=== PATIENT | female | born 1940 | race Two or more races ===

== ENCOUNTER 2017-05-07 12:26 | Inpatient (IN) | payer MEDICAID, MEDICARE ==
[2017-05-07] MEDS ORDERED: Bisacodyl 5 MG Tab PO PRN (16:49)
[2017-05-07] MEDS ORDERED: Bisacodyl 10 MG Supp RECTAL PRN (16:49)
[2017-05-07] MEDS: Albuterol 0.083% 2.5 MG/3 ML Neb Soln NEB SCH (20:10)
[2017-05-07] MEDS: Formoterol/Mometasone 200-5 MCG 8.8 GM Inhaler IH SCH (20:15)
--- NOTE | 2017-05-07 20:30 | PCM.HP ---
H&P History of Present Illness - General Date of Service: 05/07/17 Admit Problem/Dx: Admission Diagnosis/Problem Admission Diagnosis/Problem Weakness Source of Information: Patient, Family History Limitations: Reports: No Limitations - History of Present Illness Initial Comments - Free Text/Narative: Mrs. Louie is a 76 yo female with PMH of COPD, CHF, CML, hypothyroidism, and DM who is admitted to [facility] for swing bed rehabilitation following an acute hospitalization at [facility] for a presumed GI bleed. She had presented to the ED for evaluation due to general malaise and abdominal pain. While in the ED, she ended up having a coffee ground emesis that was positive for occult blood. During her hospital stay, an EGD was performed and did not reveal a specific cause of bleeding. Her hemoglobins were trended and overall remained stable; she never required a blood transfusion but was given 2 doses of IV iron. PT and OT did assess the patient and felt she would benefit from rehabilitation prior to returning home with her son and his family. Upon arrival to the floor, she denies any concerns. She states she feels weak but that even at home, some days are better than others. She has not had any vomiting nor diarrhea over the past day. She denies any abdominal pain, fever, or chills. She has not had any lightheadedness, chest pain, or shortness of breath. Her family wonders whether her antidepressant should be restarted. This was tapered and discontinued by her PCP but they have noticed that her mood seems to be worsening since that was done. It looks like she was on paxil previously. - Related Data Allergies/Adverse Reactions: Allergies Allergy/AdvReac Type Severity Reaction Status Date / Time hydromorphone Allergy Other Verified 05/07/17 12:32 Home Medications: Home Meds Albuterol [IJD: Ventolin HFA] 2 puff INH QID PRN 05/07/17 [History] Albuterol [Proventil Neb Soln] 2.5 mg NEB QIDRT 05/07/17 [History] Cranberry 500 mg PO DAILY 05/07/17 [History] Fluticasone/Salmeterol [Advair 250-50 Diskus] 1 puff INH BID 05/07/17 [History] Levothyroxine 112 mcg PO ACBREAKFAST 05/07/17 [History] Lidocaine 5% [Lidoderm 5%] 1 patch TOP DAILY 05/07/17 [History] Multivitamin [Daily Iris] 1 each PO DAILY 05/07/17 [History] Omeprazole 20 mg PO BIDAC 05/07/17 [History] glipiZIDE [Glucotrol] 10 mg PO DAILY 05/07/17 [History] traMADol [Ultram] 50 mg PO TID PRN 05/07/17 [History] Past Medical History HEENT History: Reports: Other (See Below) Other HEENT History: eye surgery Cardiovascular History: Reports: Heart Failure Respiratory History: Reports: COPD Gastrointestinal History: Reports: GI Bleed Genitourinary History: Reports: Chronic Renal Insuffiency Musculoskeletal History: Reports: None Neurological History: Reports: None Psychiatric History: Reports: Depression Endocrine/Metabolic History: Reports: Diabetes, Type II, Hypothyroidism Hematologic History: Reports: Anemia, Iron Deficiency Oncologic (Cancer) History: Reports: Other (See Below) Other Oncologic History: chronic CML Dermatologic History: Reports: None - Infectious Disease History Infectious Disease History: Reports: None - Past Surgical History HEENT Surgical History: Reports: Eye Surgery GI Surgical History: Reports: EGD Female Surgical History: Reports: Hysterectomy Social & Family History - Family History GI: Reports: Cirrhosis : Reports: Renal Disease/Insufficiency Endocrine/Metabolic: Reports: Diabetes, type II - Tobacco Use Smoking Status *Q: Former Smoker Used Tobacco, but Quit: Yes Month Tobacco Last Used: 2014 - Caffeine Use Caffeine Use: Reports: Coffee - Alcohol Use Alcohol Use History: No Alcohol Use in Last Twelve Months: No - Recreational Drug Use Recreational Drug Use: No - Living Situation & Occupation Living situation: Reports: , with Family (with her son and his family in [place] - moved here 3 months ago after living with various other children in [place] prior to that) H&P Review of Systems - Review of Systems: Review Of Systems: See Below General: Reports: No Symptoms HEENT: Reports: No Symptoms Pulmonary: Reports: No Symptoms Cardiovascular: Reports: No Symptoms Gastrointestinal: Reports: No Symptoms Genitourinary: Reports: No Symptoms Musculoskeletal: Reports: No Symptoms Skin: Reports: No Symptoms Psychiatric: Reports: No Symptoms Neurological: Reports: No Symptoms Hematologic/Lymphatic: Reports: Anemia Exam - Exam Exam: See Below - Vital Signs Vital Signs: Last Vital Signs Temp 36.9 C 05/07/17 16:49 Pulse 90 05/07/17 16:49 Resp 18 05/07/17 16:49 BP 141/55 H 05/07/17 14:59 Pulse Ox 100 05/07/17 16:49 Weight: 44.906 kg - Exam General: Alert, Cooperative. No: Mild Distress, Moderate Distress, Severe Distress HEENT: Conjunctiva Clear, Mucosa Moist & [place], Posterior Pharynx Clear, Pupils Equal, Pupils Reactive Neck: Supple, Trachea Midline. No: Lymphadenopathy, Thyromegaly Lungs: Clear to Auscultation, Normal Respiratory Effort Cardiovascular: Regular Rate, Regular Rhythm, Normal S1, Normal S2. No: Systolic Murmur, Diastolic Murmur Abdomen: Normal Bowel Sounds, Soft. No: Organomegaly, Peritoneal Signs, Distention, Tenderness Extremities: Normal Inspection, Normal Pulses Skin: Warm, Dry, Intact Neurological: Normal Speech. No: Focal Deficit *Q Meaningful Use (ADM) - VTE *Q VTE Criteria *Q: VTE Pharmacological Contraindications *Q: Risk of Bleeding - Stroke *Q Stroke Criteria *Q: - AMI *Q AMI Criteria *Q: - Problem List (1) Generalized weakness SNOMED Code(s): 23739069 ICD Code: R53.1 - WEAKNESS Status: Acute Current Visit: Yes Problem Details: - Secondary to hospitalization and GI bleed. - PT/OT consults. (2) GI bleed SNOMED Code(s): 79037620 ICD Code: K92.2 - GASTROINTESTINAL HEMORRHAGE, UNSPECIFIED Status: Resolved Current Visit: Yes Problem Details: - Presumably upper GI bleed given h/o coffee ground emesis. - EGD without specific etiology identified. - Hgb stable. Can likely be rechecked in 1 week. - Mention of colonoscopy in d/c summary; however, this can likely be deferred until the patien saul recovered from her acute hospitalization. - Continue PPI. Qualifiers: GI bleed type/associated pathology: unspecified gastrointestinal hemorrhage type Qualified Code(s): K92.2 - Gastrointestinal hemorrhage, unspecified (3) CHF (congestive heart failure) SNOMED Code(s): 50037190 ICD Code: I50.9 - HEART FAILURE, UNSPECIFIED Status: Chronic Current Visit: Yes Problem Details: - Currently asymptomatic and stable. - Not on medications for this. Qualifiers: Congestive heart failure type: diastolic Congestive heart failure chronicity: chronic Qualified Code(s): I50.32 - Chronic diastolic (congestive ) heart failure (4) COPD (chronic obstructive pulmonary disease) SNOMED Code(s): 42073614 ICD Code: J44.9 - CHRONIC OBSTRUCTIVE PULMONARY DISEASE, UNSPECIFIED Status : Chronic Current Visit: Yes Problem Details: - Also asymptomatic and stable. - Continue scheduled albuterol nebs and Advair. Qualifiers: COPD type: unspecified COPD Qualified Code(s): J44.9 - Chronic obstructive pulmonary disease, unspecified (5) Diabetes mellitus SNOMED Code(s): 83383210 ICD Code: E11.9 - TYPE 2 DIABETES MELLITUS WITHOUT COMPLICATIONS Status: Chronic Current Visit: Yes Problem Details: - Usually controlled on orals but was on insulin during her hospital stay. - Hold insulin at this point and continue glipizide. - QID glucoses. Will start insulin PRN. Qualifiers: Diabetes mellitus type: type 2 Diabetes mellitus complication status: without complication (6) Hypothyroidism SNOMED Code(s): 04747107 ICD Code: E03.9 - HYPOTHYROIDISM, UNSPECIFIED Status: Chronic Current Visit: Yes Problem Details: - Continue levothyroxine. Qualifiers: Hypothyroidism type: acquired Qualified Code(s): E03.9 - Hypothyroidism, unspecified (7) Chronic low back pain SNOMED Code(s): 226204336 ICD Code: M54.5 - LOW BACK PAIN; G89.29 - OTHER CHRONIC PAIN Status: Chronic Current Visit: Yes Problem Details: - Continue lidoderm and tramadol. Qualifiers: Back pain laterality: unspecified Sciatica presence: unspecified whether sciatica present Qualified Code(s): M54.5 - Low back pain; G89.29 - Other chronic pain Problem List Initiated/Reviewed/Updated: Yes Orders Last 24hrs: Active Orders 24 hr Category Date Time Status Patient Status [ADT] Routine ADT 05/07/17 16:49 Active Antiembolic Devices [RC] , Care 05/07/17 16:52 Active Notify Provider Vital Signs [RC] ,18 Care 05/07/17 16:50 Active Oxygen Therapy [RC] ,20 Care 05/07/17 16:49 Active Up With Assistance [RC] , Care 05/07/17 16:49 Active VTE/DVT Education [RC] .PRN Care 05/07/17 16:49 Active Vital Signs [RC] PER UNIT ROUTINE Care 05/07/17 16:49 Active OT Evaluation and Treatment [CONS] Routine Cons 05/07/17 16:49 Active PT Evaluation and Treatment [CONS] Routine Cons 05/07/17 16:49 Active Citizen Of [place] Diabetic Association Diet [DIET] Diet 05/07/17 Dinner Active Acetaminophen [Tylenol] Med 05/07/17 16:49 Active 650 mg PO Q4H PRN Albuterol [Proventil Neb Soln] Med 05/07/17 20:00 Active 2.5 mg NEB QIDRT Bisacodyl [Dulcolax] Med 05/07/17 16:49 Active 10 mg RECTAL DAILY PRN Bisacodyl [Dulcolax] Med 05/07/17 16:49 Active 5 mg PO DAILY PRN Cranberry Med 05/08/17 08:00 Active 500 mg PO DAILY Docusate Sodium [Colace] Med 05/07/17 16:49 Active 100 mg PO BID PRN Levothyroxine Med 05/08/17 07:00 Active 112 mcg PO ACBREAKFAST Lidocaine 5% [Lidoderm 5%] Med 05/08/17 08:00 Active 700 mg TOP DAILY Mometasone/Formoterol [Dulera 200-5 MCG] Med 05/07/17 20:00 Active 2 puff IH BID Multivitamins with Zinc [Stress Formula with Zinc] Med 05/08/17 08:00 Active 1 tab PO DAILY Omeprazole Med 05/08/17 07:00 Active 20 mg PO BIDAC Remove Patch Med 05/07/17 20:00 Active 1 ea TRDERM DAILY@1999 glipiZIDE [Glucotrol] Med 05/08/17 08:00 Active 10 mg PO DAILY traMADol [Ultram] Med 05/07/17 17:12 Active 50 mg PO TID PRN Sequential Compression Device [OM.PC] Routine Oth 05/07/17 16:49 Ordered VTE Pharmacological Contraindications [AST] Per Unit Oth 05/07/17 16:49 Ordered Routine Resuscitation Status Routine Resus Stat 05/07/17 16:49 Ordered Medication Orders Acetaminophen (Tylenol) 650 mg PO Q4H PRN PRN Reason: Pain (Mild 1-3)/fever Albuterol (Proventil Neb Soln) 2.5 mg NEB QIDRT [facility] Last Admin: 05/07/17 20:10 Dose: 2.5 mg Bisacodyl (Dulcolax) 5 mg PO DAILY PRN PRN Reason: Constipation Bisacodyl (Dulcolax) 10 mg RECTAL DAILY PRN PRN Reason: Constipation Cranberry (Cranberry) 500 mg PO DAILY [facility] Docusate Sodium (Colace) 100 mg PO BID PRN PRN Reason: Constipation Glipizide (Glucotrol) 10 mg PO DAILY [facility] Levothyroxine Sodium (Levothyroxine) 112 mcg PO ACBREAKFAST [facility] Lidocaine (Lidoderm 5%) 700 mg TOP DAILY [facility] Miscellaneous Information (Remove Patch) 1 ea TRDERM DAILY@1999 [facility] Mometasone Furoate/Formoterol Fumar (Dulera 200-5 Mcg) 2 puff IH BID [facility] Last Admin: 05/07/17 20:15 Dose: 2 puff Omeprazole (Omeprazole) 20 mg PO BIDAC [facility] Tramadol HCl (Ultram) 50 mg PO TID PRN PRN Reason: Pain Vitamin B Complex/Vit C/Vit E/Zinc (Stress Formula With Zinc) 1 tab PO DAILY [facility] Assessment/Plan Comment:: 76 yo female admitted to swing bed for rehabilitation following an acute hospitalization in [place] for a GI bleed. PT/OT consults. Medications as per hospital dismissal summary. See details under problems above. SCDs for VTE prophylaxis; pharmacologic contraindicated in the setting of a recent GI bleed. Patient wishes to be FULL CODE. Anticipate a few weeks of rehab but this will be guided by PT and OT.
[2017-05-07] MEDS: Melatonin 3 MG Tab PO SCH (22:18)
[2017-05-07] MEDS: Remove Patch **LIDOCAINE TRDERM SCH (22:18)
[2017-05-07] MEDS: traMADol 50 MG Tab PO PRN (22:21)
[2017-05-08] MEDS: Omeprazole 20 MG Cap.CR PO SCH ×2 (06:49→17:19)
[2017-05-08] MEDS: Levothyroxine 112 MCG Tab PO SCH (06:49)
[2017-05-08] MEDS: Albuterol 0.083% 2.5 MG/3 ML Neb Soln NEB SCH ×4 (07:28→20:10)
[2017-05-08] MEDS: Cranberry 500 MG Cap PO SCH (08:52)
[2017-05-08] MEDS: Multivitamin, Stress Formula with Zinc Tab PO SCH (08:52)
[2017-05-08] MEDS: Lidocaine 5% 700 MG Patch TOP SCH (08:53)
[2017-05-08] MEDS: Formoterol/Mometasone 200-5 MCG 8.8 GM Inhaler IH SCH ×2 (08:54→20:11)
[2017-05-08] MEDS: Insulin Aspart 100 Units/ML 3 ML Pen SUBCUT SCH ×2 (11:47→17:45)
[2017-05-08] MEDS: Remove Patch **LIDOCAINE TRDERM SCH (20:11)
[2017-05-08] MEDS: Melatonin 3 MG Tab PO SCH (20:11)
[2017-05-08] MEDS: traMADol 50 MG Tab PO PRN (20:55)
[2017-05-08] MEDS: Docusate Sodium 100 MG Cap PO PRN (20:55)
[2017-05-09] MEDS: Omeprazole 20 MG Cap.CR PO SCH ×2 (06:27→17:11)
[2017-05-09] MEDS: Levothyroxine 112 MCG Tab PO SCH (06:27)
[2017-05-09] MEDS: Albuterol 0.083% 2.5 MG/3 ML Neb Soln NEB SCH ×3 (07:15→20:42)
--- NOTE | 2017-05-09 08:20 | PCM.SN ---
- Free Text/Narrative Note: Nurses have noted dark, foul smelling urine. U/A is consistent with UTI. Will treat with bactrim as macrobid is not an option due to CrCl <60.
[2017-05-09] MEDS ORDERED: Sulfamethoxazole/Trimethoprim 800-160 MG Tab PO SCH (08:30)
[2017-05-09] MEDS: Multivitamin, Stress Formula with Zinc Tab PO SCH (09:06)
[2017-05-09] MEDS: Cranberry 500 MG Cap PO SCH (09:06)
[2017-05-09] MEDS: Lidocaine 5% 700 MG Patch TOP SCH (09:06)
[2017-05-09] MEDS: Formoterol/Mometasone 200-5 MCG 8.8 GM Inhaler IH SCH ×2 (09:07→20:48)
[2017-05-09] MEDS: Insulin Aspart 100 Units/ML 3 ML Pen SUBCUT SCH ×3 (09:09→17:13)
[2017-05-09] MEDS: Melatonin 3 MG Tab PO SCH (20:42)
[2017-05-09] MEDS: Nitrofurantoin Monohydrate/Macrocrystalline 100 MG Cap PO SCH (20:42)
[2017-05-09] MEDS: Remove Patch **LIDOCAINE TRDERM SCH (20:42)
[2017-05-10] MEDS: Levothyroxine 112 MCG Tab PO SCH (06:12)
[2017-05-10] MEDS: Omeprazole 20 MG Cap.CR PO SCH ×2 (06:12→17:38)
[2017-05-10] MEDS: Albuterol 0.083% 2.5 MG/3 ML Neb Soln NEB SCH ×2 (07:27→20:38)
[2017-05-10] MEDS: Cranberry 500 MG Cap PO SCH (09:32)
[2017-05-10] MEDS: Multivitamin, Stress Formula with Zinc Tab PO SCH (09:32)
[2017-05-10] MEDS: Nitrofurantoin Monohydrate/Macrocrystalline 100 MG Cap PO SCH ×2 (09:33→20:38)
[2017-05-10] MEDS: Formoterol/Mometasone 200-5 MCG 8.8 GM Inhaler IH SCH ×2 (09:33→20:41)
[2017-05-10] MEDS: Lidocaine 5% 700 MG Patch TOP SCH (09:33)
[2017-05-10] MEDS: Insulin Aspart 100 Units/ML 3 ML Pen SUBCUT SCH ×3 (09:34→17:38)
[2017-05-10] MEDS: traMADol 50 MG Tab PO PRN (13:11)
[2017-05-10] MEDS: Acetaminophen 325 MG Tab PO PRN (18:29)
[2017-05-10] MEDS: Melatonin 3 MG Tab PO SCH (20:38)
[2017-05-10] MEDS: Remove Patch **LIDOCAINE TRDERM SCH (20:42)
[2017-05-11] MEDS: Omeprazole 20 MG Cap.CR PO SCH ×2 (06:01→17:09)
[2017-05-11] MEDS: Levothyroxine 112 MCG Tab PO SCH (06:02)
[2017-05-11] MEDS: Albuterol 0.083% 2.5 MG/3 ML Neb Soln NEB SCH ×2 (06:03→21:36)
[2017-05-11] MEDS: Acetaminophen 325 MG Tab PO PRN (08:53)
[2017-05-11] MEDS: Multivitamin, Stress Formula with Zinc Tab PO SCH (08:55)
[2017-05-11] MEDS: Cranberry 500 MG Cap PO SCH (08:55)
[2017-05-11] MEDS: Insulin Aspart 100 Units/ML 3 ML Pen SUBCUT SCH ×3 (08:55→17:10)
[2017-05-11] MEDS: Nitrofurantoin Monohydrate/Macrocrystalline 100 MG Cap PO SCH ×2 (08:55→21:36)
[2017-05-11] MEDS: Formoterol/Mometasone 200-5 MCG 8.8 GM Inhaler IH SCH ×2 (08:56→21:37)
[2017-05-11] MEDS: Lidocaine 5% 700 MG Patch TOP SCH (08:56)
[2017-05-11] MEDS: traMADol 50 MG Tab PO PRN (17:09)
[2017-05-11] MEDS: Remove Patch **LIDOCAINE TRDERM SCH (21:36)
[2017-05-11] MEDS: Melatonin 3 MG Tab PO SCH (21:36)
[2017-05-12] MEDS: Levothyroxine 112 MCG Tab PO SCH (06:46)
[2017-05-12] MEDS: Albuterol 0.083% 2.5 MG/3 ML Neb Soln NEB SCH ×2 (06:46→21:48)
[2017-05-12] MEDS: Omeprazole 20 MG Cap.CR PO SCH ×2 (06:46→16:23)
[2017-05-12] MEDS: Formoterol/Mometasone 200-5 MCG 8.8 GM Inhaler IH SCH ×2 (08:28→21:49)
[2017-05-12] MEDS: Multivitamin, Stress Formula with Zinc Tab PO SCH (08:28)
[2017-05-12] MEDS: Insulin Aspart 100 Units/ML 3 ML Pen SUBCUT SCH ×3 (08:29→17:18)
[2017-05-12] MEDS: Lidocaine 5% 700 MG Patch TOP SCH (08:29)
[2017-05-12] MEDS: Nitrofurantoin Monohydrate/Macrocrystalline 100 MG Cap PO SCH ×2 (08:29→21:46)
[2017-05-12] MEDS: Acetaminophen 325 MG Tab PO PRN ×2 (08:29→16:23)
[2017-05-12] MEDS: Cranberry 500 MG Cap PO SCH (08:29)
--- NOTE | 2017-05-12 09:52 | PCM.SN ---
- Free Text/Narrative Note: Asked by nursing staff to look at her arm. At site of previous IV, she had some swelling and redness. This was outlined and does appear to be receding today. She still does have some pain. No fever or chills. When I look at the area, she does have some erythema and induration; no underlying fluctuance. However, it has receded significantly from the previously drawn line yesterday. Therefore, I would continue with ice/heat and observation. I will look at it again tomorrow. CBC today is stable/uptrending.
[2017-05-12] MEDS: traMADol 50 MG Tab PO PRN ×2 (14:15→21:46)
[2017-05-12] MEDS: Melatonin 3 MG Tab PO SCH (21:46)
[2017-05-12] MEDS: Remove Patch **LIDOCAINE TRDERM SCH (21:48)
[2017-05-13] MEDS: Acetaminophen 325 MG Tab PO PRN ×2 (06:52→16:25)
[2017-05-13] MEDS: Omeprazole 20 MG Cap.CR PO SCH ×2 (06:52→17:06)
[2017-05-13] MEDS: Levothyroxine 112 MCG Tab PO SCH (06:52)
[2017-05-13] MEDS: Albuterol 0.083% 2.5 MG/3 ML Neb Soln NEB SCH ×2 (07:22→20:24)
--- NOTE | 2017-05-13 08:26 | PCM.SN ---
- Free Text/Narrative Note: Checked on patient's arm today. Pain is not improved and redness is worse today. Will go ahead and start cephalexin for cellulitis. Patient is anticipating d/c home tomorrow.
[2017-05-13] MEDS: Cephalexin 500 MG Cap PO SCH ×2 (08:42→20:27)
[2017-05-13] MEDS: Cranberry 500 MG Cap PO SCH (08:42)
[2017-05-13] MEDS: Lidocaine 5% 700 MG Patch TOP SCH (08:42)
[2017-05-13] MEDS: Multivitamin, Stress Formula with Zinc Tab PO SCH (08:43)
[2017-05-13] MEDS: Formoterol/Mometasone 200-5 MCG 8.8 GM Inhaler IH SCH ×2 (08:44→20:29)
[2017-05-13] MEDS: Insulin Aspart 100 Units/ML 3 ML Pen SUBCUT SCH ×3 (08:45→17:07)
[2017-05-13] MEDS: Nitrofurantoin Monohydrate/Macrocrystalline 100 MG Cap PO SCH (10:54)
[2017-05-13] MEDS: traMADol 50 MG Tab PO PRN (20:25)
[2017-05-13] MEDS: Melatonin 3 MG Tab PO SCH (20:27)
[2017-05-13] MEDS: Remove Patch **LIDOCAINE TRDERM SCH (20:30)
[2017-05-13] MEDS: Docusate Sodium 100 MG Cap PO PRN (20:37)
[2017-05-14] MEDS: Levothyroxine 112 MCG Tab PO SCH (06:00)
[2017-05-14] MEDS: Omeprazole 20 MG Cap.CR PO SCH (06:01)
[2017-05-14 06:25] VITALS: BP 166/60
[2017-05-14] MEDS: Albuterol 0.083% 2.5 MG/3 ML Neb Soln NEB SCH (07:24)
[2017-05-14] MEDS: Cephalexin 500 MG Cap PO SCH (07:59)
[2017-05-14] MEDS: Multivitamin, Stress Formula with Zinc Tab PO SCH (07:59)
[2017-05-14] MEDS: Formoterol/Mometasone 200-5 MCG 8.8 GM Inhaler IH SCH (07:59)
[2017-05-14] MEDS: Cranberry 500 MG Cap PO SCH (08:00)
[2017-05-14] MEDS: Insulin Aspart 100 Units/ML 3 ML Pen SUBCUT SCH (08:00)
[2017-05-14] MEDS: Lidocaine 5% 700 MG Patch TOP SCH (08:01)
--- NOTE | 2017-05-14 08:26 | PCM.DCSUM1 ---
Discharge Summary - Discharge Data Discharge Date: 05/14/17 Discharge Disposition: Home, Self-Care 01 Condition: Good - Discharge Diagnosis/Problem(s) (1) Generalized weakness SNOMED Code(s): 90684680 ICD Code: R53.1 - WEAKNESS Status: Acute Current Visit: Yes Problem Details: Her weakness is secondary to hospitalization and GI bleed. PT and OT have been consulted and she has improved somewhat. She is felt to need 24 hour supervision but this will be provided by family. (2) GI bleed SNOMED Code(s): 51109755 ICD Code: K92.2 - GASTROINTESTINAL HEMORRHAGE, UNSPECIFIED Status: Resolved Current Visit: Yes Problem Details: Presumably upper GI bleed given history of coffee ground emesis. EGD without specific etiology identified. Hemoglobin checked while on swing bed and was trending upward. Her PPI was continued. Qualifiers: GI bleed type/associated pathology: unspecified gastrointestinal hemorrhage type Qualified Code(s): K92.2 - Gastrointestinal hemorrhage, unspecified (3) CHF (congestive heart failure) SNOMED Code(s): 31760979 ICD Code: I50.9 - HEART FAILURE, UNSPECIFIED Status: Chronic Current Visit: Yes Problem Details: Currently asymptomatic and stable. Not on medications for this. Qualifiers: Congestive heart failure type: diastolic Congestive heart failure chronicity: chronic Qualified Code(s): I50.32 - Chronic diastolic (congestive ) heart failure (4) COPD (chronic obstructive pulmonary disease) SNOMED Code(s): 15522787 ICD Code: J44.9 - CHRONIC OBSTRUCTIVE PULMONARY DISEASE, UNSPECIFIED Status : Chronic Current Visit: Yes Problem Details: Also asymptomatic and stable. Continue scheduled albuterol nebs and Advair. Qualifiers: COPD type: unspecified COPD Qualified Code(s): J44.9 - Chronic obstructive pulmonary disease, unspecified (5) Diabetes mellitus SNOMED Code(s): 96878980 ICD Code: E11.9 - TYPE 2 DIABETES MELLITUS WITHOUT COMPLICATIONS Status: Chronic Current Visit: Yes Problem Details: Usually controlled on orals but was on insulin during her hospital stay. Was on sliding scale insulin here as well for elevated glucoses; however, will not dismiss home on this. They can watch her sugars upon dismissal and will work with her primary to make adjustments as indicated. Glipizide continued. Qualifiers: Diabetes mellitus type: type 2 Diabetes mellitus complication status: without complication (6) Hypothyroidism SNOMED Code(s): 62877955 ICD Code: E03.9 - HYPOTHYROIDISM, UNSPECIFIED Status: Chronic Current Visit: Yes Problem Details: Levothyroxine continued. Qualifiers: Hypothyroidism type: acquired Qualified Code(s): E03.9 - Hypothyroidism, unspecified (7) Chronic low back pain SNOMED Code(s): 743812884 ICD Code: M54.5 - LOW BACK PAIN; G89.29 - OTHER CHRONIC PAIN Status: Chronic Current Visit: Yes Problem Details: Lidoderm and tramadol continued. Qualifiers: Back pain laterality: unspecified Sciatica presence: unspecified whether sciatica present Qualified Code(s): M54.5 - Low back pain; G89.29 - Other chronic pain (8) Cellulitis SNOMED Code(s): 791959131 ICD Code: L03.90 - CELLULITIS, UNSPECIFIED Status: Acute Current Visit: Yes Problem Details: Patient was noted to have redness and swelling at one of her IV sites. She was started on cephalexin with some improvement in symptoms. Qualifiers: Site of cellulitis: extremity Site of cellulitis of extremity: upper extremity Laterality: left Qualified Code(s): L03.114 - Cellulitis of left upper limb (9) Cystitis SNOMED Code(s): 84361197 ICD Code: N30.90 - CYSTITIS, UNSPECIFIED WITHOUT HEMATURIA Status: Acute Current Visit: Yes Problem Details: Nursing staff had noted dark, foul smelling urine. The patient was asymptomatic. A u/a was concerning for a UTI and she was treated with a 5 day course of macrobid. Her symptoms resolved. - Patient Summary/Data Operative Procedure(s) Performed: none Complications: none Consults: Consultations 05/07/17 16:49 OT Evaluation and Treatment [CONS] Routine PT Evaluation and Treatment [CONS] Routine Labs Pending at D/C: none Recommended Follow-up Testing/Procedures: Hospital discharge summary recommends consideration for a colonoscopy. Planned Operative Procedure(s) after DC: none Hospital Course: Therapy worked with the patient for strengthening and it was felt she was prepared for dismissal home with family as of 05/14/17. - Patient Instructions Diet: Diabetic Diet Driving: Do Not Drive Showering/Bathing: May Shower Notify Provider of: Fever, Increased Pain, Swelling and Redness - Discharge Plan Prescriptions/Med Rec: Cephalexin [IJD: Cephalexin] 500 mg PO BID #12 capsule Home Medications: Home Meds Albuterol [IJD: Ventolin HFA] 2 puff INH QID PRN 05/07/17 [History] Cranberry 500 mg PO DAILY 05/07/17 [History] Fluticasone/Salmeterol [Advair 250-50 Diskus] 1 puff INH BID 05/07/17 [History] Levothyroxine 112 mcg PO ACBREAKFAST 05/07/17 [History] Lidocaine 5% [Lidoderm 5%] 1 patch TOP DAILY 05/07/17 [History] Multivitamin [Daily Iris] 1 each PO DAILY 05/07/17 [History] Omeprazole 20 mg PO BIDAC 05/07/17 [History] glipiZIDE [Glucotrol] 10 mg PO DAILY 05/07/17 [History] traMADol [Ultram] 50 mg PO TID PRN 05/07/17 [History] Cephalexin [IJD: Cephalexin] 500 mg PO BID #12 capsule 05/14/17 [Rx] - Discharge Summary/Plan Comment DC Time >30 min.: No - General Info Date of Service: 05/14/17 Subjective Update: Doing well this morning. Prepared for dismissal. - Review of Systems General: Reports: No Symptoms HEENT: Reports: no symptoms Pulmonary: Reports: no symptoms Cardiovascular: Reports: No Symptoms Gastrointestinal: Reports: No symptoms Genitourinary: Reports: no symptoms Musculoskeletal: Reports: no symptoms Skin: Reports: no symptoms Neurological: Reports: No Symptoms - Patient Data Vitals - Most Recent: Last Vital Signs Temp 36.8 C 05/14/17 06:00 Pulse 86 05/14/17 06:00 Resp 20 05/14/17 06:00 BP 166/60 H 05/14/17 06:00 Pulse Ox 95 05/14/17 07:27 Weight - Most Recent: 44.906 kg I&O - Last 24 hours: Intake & Output 05/13/17 05/14/17 05/14/17 22:59 06:59 14:59 Intake Total 240 Balance 240 Lab Results - Last 24 hrs: Laboratory Results - last 24 hr 05/13/17 05/13/17 05/13/17 Range/Units 06:51 10:59 17:06 POC Glucose 201 H 268 H 364 H (74-106) mg/dL 05/13/17 05/14/17 Range/Units 20:24 06:05 POC Glucose 160 H 201 H (74-106) mg/dL Med Orders - Current: Current Medications Acetaminophen (Tylenol) 650 mg PO Q4H PRN PRN Reason: Pain (Mild 1-3)/fever Last Admin: 05/13/17 16:25 Dose: 650 mg Albuterol (Proventil Neb Soln) 2.5 mg NEB BIDRT [facility] Last Admin: 05/14/17 07:24 Dose: 2.5 mg Bisacodyl (Dulcolax) 5 mg PO DAILY PRN PRN Reason: Constipation Bisacodyl (Dulcolax) 10 mg RECTAL DAILY PRN PRN Reason: Constipation Cephalexin (Keflex) 500 mg PO BID [facility] Stop: 05/19/17 20:01 Last Admin: 05/14/17 07:59 Dose: 500 mg Cranberry (Cranberry) 500 mg PO DAILY [facility] Last Admin: 05/14/17 08:00 Dose: 500 mg Docusate Sodium (Colace) 100 mg PO BID PRN PRN Reason: Constipation Last Admin: 05/13/17 20:37 Dose: 100 mg Glipizide (Glucotrol) 10 mg PO DAILY [facility] Last Admin: 05/14/17 07:59 Dose: 10 mg Insulin Aspart (Novolog) 0 unit SUBCUT TIDMEALS [facility] PRN Reason: Protocol Last Admin: 05/14/17 08:00 Dose: 2 units Levothyroxine Sodium (Levothyroxine) 112 mcg PO ACBREAKFAST [facility] Last Admin: 05/14/17 06:00 Dose: 112 mcg Lidocaine (Lidoderm 5%) 700 mg TOP DAILY [facility] Last Admin: 05/14/17 08:01 Dose: 700 mg Melatonin (Melatonin) 3 mg PO BEDTIME [facility] Last Admin: 05/13/17 20:27 Dose: 3 mg Miscellaneous Information (Remove Patch) 1 ea TRDERM DAILY@1999 [facility] Last Admin: 05/13/17 20:30 Dose: 1 ea Mometasone Furoate/Formoterol Fumar (Dulera 200-5 Mcg) 2 puff IH BID [facility] Last Admin: 05/14/17 07:59 Dose: 2 puff Omeprazole (Omeprazole) 20 mg PO BIDAC [facility] Last Admin: 05/14/17 06:01 Dose: 20 mg Tramadol HCl (Ultram) 50 mg PO TID PRN PRN Reason: Pain Last Admin: 05/13/17 20:25 Dose: 50 mg Vitamin B Complex/Vit C/Vit E/Zinc (Stress Formula With Zinc) 1 tab PO DAILY [facility] Last Admin: 05/14/17 07:59 Dose: 1 tab Discontinued Medications Albuterol (Proventil Neb Soln) 2.5 mg NEB QIDRT [facility] Last Admin: 05/09/17 10:46 Dose: Not Given Nitrofurantoin Macrocrystals (Macrobid) 100 mg PO BID [facility] Stop: 05/13/17 20:01 Last Admin: 05/13/17 10:54 Dose: Not Given Trimethoprim/Sulfamethoxazole (Septra Ds) 1 tab PO BID [facility] Last Admin: 05/09/17 09:13 Dose: 1 tab - Exam General: Reports: alert, cooperative, no acute distress HEENT: Reports: Pupils equal, Pupils reactive, Mucous membr. moist/pink Neck: Reports: supple, no thyromegaly. Denies: lymphadenopathy Lungs: Reports: Clear to auscultation, Normal respiratory effort Cardiovascular: Reports: Regular Rate, Regular Rhythm, No Murmurs Abdomen: Reports: bowel sounds present, soft, no tenderness, no distension Extremities: Reports: no edema, normal pulses, other (area of cellulitis is less intensely red and is less painful and swollen today) Skin: Reports: warm, dry, intact *Q Meaningful Use (DIS) - VTE *Q VTE Criteria *Q: VTE Pharmacological Contraindications *Q: Risk of Bleeding - Stroke *Q Stroke Criteria *Q: - AMI *Q AMI Criteria *Q:
== END 2017-05-14 09:00 | disposition home or self-care (01) | DRG 948 ==
LOC: VM.MS 14:56
PROVIDERS: ADMIT Family Medicine; ATTEND Family Medicine
DX: R53.1 Weakness (principal); K92.2 Gastrointestinal hemorrhage, unspecified; I50.32 Chronic diastolic (congestive) heart failure; L03.114 Cellulitis of left upper limb; J44.9 Chronic obstructive pulmonary disease, unspecified; E11.9 Type 2 diabetes mellitus without complications; E03.9 Hypothyroidism, unspecified; M54.5 Low back pain; G89.29 Other chronic pain; N30.90 Cystitis, unspecified without hematuria; D50.0 Iron deficiency anemia secondary to blood loss (chronic); N18.9 Chronic kidney disease, unspecified; Z87.891 Personal history of nicotine dependence
CPT/HCPCS: 36415; 81001; 82962; 85025; 94640; 94640-76; 94760; 97110-GO; 97110-GP; 97116-GP; 97161-GP; 97165-GO; 97530-GP; A9270-GY; J1815-GY; J7620-GY

== ENCOUNTER 2017-07-18 12:23 | Inpatient (IN) | payer MEDICARE, MEDICAID ==
[2017-07-18] MEDS ORDERED: Ampicillin/Sulbactam Na 3 GM in Sodium Chloride 0.9% 100 ML IV ONE (13:21)
[2017-07-18 13:37] LABS: CHLORIDE,CL 99 mmol/L (98-107); SODIUM,NA 133 mmol/L (136-145)
[2017-07-18] MEDS ORDERED: Acetaminophen 500 MG Tab PO PRN (16:12)
--- NOTE | 2017-07-18 16:14 | ER ---
Date of Service: 07/18/2017 SUBJECTIVE: Aliyah presents to the emergency room with complaints of dysuria. Her nysvsamw-ty-ipb states that she was diagnosed with urinary tract infection approximately 2 weeks ago and was started on Cipro. Apparently, her urine susceptibility came back for E coli which was resistant to Cipro. The patient was subsequently seen in the clinic yesterday and was started on Augmentin. She has only had 1 tablet of this so far. The patient's tobqjqzp-qm-eks states that she lives with her and is her primary caregiver. The patient lives with her and her . She states that the patient has been experiencing increased weakness, difficulties with standing and transferring, and getting off the platelets. She states that she is also a noticed that the patient has been experiencing elevated blood sugars. She is currently on glipizide and apparently has been resistant to starting insulin. The patient's daughter left this out of her history but on obtaining her medical records she does have a history of CML and is being followed by [facility] for this. The patient's hvkcwkma-sd-tsl states that the patient's appetite has been adequate and she has been drinking a normal amounts of water. She states that her blood sugar has been in the 350 to 400 range over the past 24 hours. PAST MEDICAL HISTORY: 1. COPD. 2. CHF. 3. CML. 4. Hypothyroidism. 5. Type 2 diabetes mellitus. 6. Recent treatment for GI bleed. 7. Hypothyroidism. MEDICATIONS: 1. Albuterol nebulizer and inhaler. 2. Cranberry. 3. Advair Diskus. 4. Levothyroxine. 5. Lidoderm patch. 6. Multivitamin. 7. Omeprazole. 8. Glipizide. 9. Ultram. ALLERGIES: Hydromorphone. REVIEW OF SYSTEMS: General: Positive for fever or chills. HEENT: No sore throat, rhinorrhea, congestion. Respiratory: No shortness of breath. Cardiac: Denies any substernal chest pain. No jaw, arm, neck, or back pain. GI: No nausea, vomiting, or diarrhea. No melena, hematochezia, or hematemesis. : Please see history of present illness. She does complain of some dysuria. She denies any diarrhea. She denies any melena, hematochezia, or hematemesis. Musculoskeletal: No myalgias or arthralgias. Neurologic: No fainting, blackouts, or lightheadedness. PHYSICAL EXAMINATION: General: This is a 77-year-old female patient, who is in no acute distress. Vital Signs: Blood pressure is 148/71, heart rate 86, temperature is 36.7, or respiratory rate 16, O2 saturations 97%. Skin: Warm, pale, and dry. HEENT. Head is normocephalic, atraumatic. Mouth, oral mucosa is moist. Lungs: Clear to auscultation. Heart: Regular rate and rhythm. Abdomen: Soft, nontender. There is no hepatosplenomegaly noted. There are no masses noted. Extremities: Without edema. Neurologic: The patient is alert oriented, answers all questions appropriately. Her speech is fluent. Unable to assess her gait as she is currently in a wheelchair at this time. LABORATORY DATA: WBC is 17.2 with 71% neutrophils, 80% lymphocytes, 6% monos, and 1% eosinophils and 4% basophils. She did have occasional smudge cells, and 1+ anisocytosis and microcytosis, hemoglobin is 11.2, and platelets are 115. Coags: PT is 10.5, INR is 1.0. Chemistry: Sodium is 133, potassium is 4.2, chloride is 99, bicarb is 22, BUN is 39, and creatinine is 2.0. GFR is 24, glucose is 484, lactic acid is 2.1 calcium is 7.7, corrected calcium is 8.26, and total bilirubin is 0.5. AST is 37, ALT is 39, alkaline phosphatase is 203, C-reactive protein is 0.8, total protein is 8.3, and albumin is 3.3. IMAGING: Two-view chest x-ray was obtained. There was no evidence of any acute pathology. Urinalysis was deferred as she has had a recent urinary tract infection and currently is diagnosed with acute cystitis. EMERGENCY ROOM COURSE: IV access was established. She was given Unasyn 3 g IV and a 500 mL saline fluid bolus. She remained stable in my care in the emergency room. ASSESSMENT: Sepsis secondary to urinary tract infection. PLAN: The patient will be admitted acutely. I did speak with Dr. Lopez regarding this patient. She will likely require more than the 48 hour hospital stay. MWK: 07/18/2017 15:09:10 MODL: 07/18/2017 16:01:03 /[id number]
[2017-07-18] MEDS: Sodium Chloride 0.9% 1,000 ML IV SCH (16:46)
[2017-07-18] MEDS ORDERED: Albuterol 8 GM Inhaler INH PRN (16:58)
[2017-07-18] MEDS: Insulin Aspart 100 Units/ML 3 ML Pen SUBCUT SCH ×2 (18:21→19:51)
[2017-07-18] MEDS: Ergocalciferol (Vitamin D2) 50,000 Unit Cap PO SCH (18:21)
[2017-07-18] MEDS: Omeprazole 20 MG Cap.CR PO SCH (18:21)
[2017-07-18] MEDS: Formoterol/Mometasone 200-5 MCG 8.8 GM Inhaler IH SCH (19:52)
[2017-07-18] MEDS: Acetaminophen 500 MG Tab PO PRN (20:00)
--- NOTE | 2017-07-18 21:22 | HP ---
CHIEF COMPLAINT: Weakness, confusion. HISTORY OF PRESENT ILLNESS: The patient is a 77-year-old female, who has been recently treated as an outpatient for bladder infection. She had been on Cipro and then apparently, the culture was resistant to Cipro, so she was placed on Augmentin which she took for a day, then did not tolerate taking it. She has not been drinking as much. She became weaker and more confused, so daughter brought her to the emergency room. She has seen Dr. Judy Cast in the past on swing bed, had a doctor in [place], but will be switching to Dr. Judy Cast in the future. The patient is diabetic. She does have some bone marrow issues for which she has also been seen by Hematology and some chronic kidney disease. Blood sugars do tend to run around 200. The patient does have some chronic back pain, which daughter has been trying to wean off her medications. MEDICATIONS: She is currently on: 1. Augmentin 500 mg 1 twice a day. 2. Levothyroxine 112 mcg 1 pill Saturday, Saturday, , Saturday, and Saturday; 125 mcg on Sundays and Wednesdays. 3. Tylenol 500 mg 1 pill every 4-6 hours as needed. 4. Albuterol MDI 2 puffs every 4 hours as needed. 5. Vitamin D 50,000 units 1 pill once a week. 6. Omeprazole 20 mg 1 pill twice a day. 7. Multivitamin 1 pill a day. 8. Cranberry pill 1 pill daily. 9. Albuterol nebs q.4 q.i.d. p.r.n. 10.Advair 250/50 one puff twice a day. 11.Glipizide XL 5 mg, she takes 2 pills once a day. 12.Lidoderm patch, apply daily as needed. 13.Oxygen 1 L at night. ALLERGIES: Dilaudid. PAST MEDICAL HISTORY: She has CMML possibly, diagnosis is in question right now; COPD; chronic kidney disease, stage 3 to 4; type 2 diabetes mellitus; hypothyroidism; chronic back pain; vitamin D deficiency. She has had a GI bleed, iron deficiency anemia, right leg pain, cataracts. PAST SURGICAL HISTORY: Hysterectomy, eye surgery, upper endoscopy in 2017. FAMILY MEDICAL HISTORY: Not available. SOCIAL HISTORY: She is living with her daughter in [place]. Previously to that, she lived in [place] with a different daughter. 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 She is . She used to smoke. She does not consume alcohol. REVIEW OF SYSTEMS: Very weak, is forgetful. No fevere. Weight has been the same. She does have a cough. She does get winded with exertion. No nausea. Does have some problems with constipation or incontinence. Slender extremities. No chest pain. No bruising. She does have chronic back and joint pain. Mood is good No enlarged lymph glands. PHYSICAL EXAMINATION: General: Reveals a very slender, weak-appearing female. Vital Signs: Temperature is 96.3, pulse is 86, blood pressure is 148/71, sats are 97%, temperature is 36.7. Skin: [place], warm, and dry. Mucous membranes are dry. HEENT: Mucus membranes dry, [place], eyelids normal. Heart: Regular rate and rhythm. Lungs: Reveal some diminished breath sounds on bases. No crackles. Abdomen: Slightly distended.BS +, softe. Extremities: Slender, thin. arthritic deformities of hands. Skin No lesions Mood: quite, Neuro: Weak with walking, moves all extremities. LABORATORY DATA: Her white blood cell count is 17.2, hemoglobin 11.2, platelets 115, 71 segs, lymphs 18. Sodium 133, potassium 4.2, creatinine 2.0, BUN 39, glucose 484, lactic acid 2.1. IMPRESSION: 1. Urinary tract infection. 2. Septic, slightly elevated lactic acid. 3. Dehydration. 4. Chronic kidney disease, slight exacerbation. 5. Type 2 diabetes mellitus. 6. .Hyperglycemia due to illness. 7. Chronic back pain. 8.Forgetfulness. PLAN: The patient will be admitted to the acute care. She is code level 1 status. We will do IV hydration. She will receive Unasyn for an antibiotic, as she has failed out patient care. We will see PT, OT, and Bank Vault Clerk to assist with the patient. She requests Dr Cast to manage her care. Anticipate discharge home in a few days.. GM07/18/2017 15:10:19 MODL: 07/18/2017 21:07:37 /[id number] [facility]
[2017-07-19] MEDS: Ampicillin/Sulbactam Na 3 GM in Sodium Chloride 0.9% 100 ML IV SCH ×2 (01:23→14:12)
[2017-07-19] MEDS: Sodium Chloride 0.9% 1,000 ML IV SCH (03:14)
[2017-07-19] MEDS: Levothyroxine 112 MCG Tab PO SCH (06:01)
[2017-07-19] MEDS: Omeprazole 20 MG Cap.CR PO SCH ×2 (06:02→15:59)
[2017-07-19] MEDS: Formoterol/Mometasone 200-5 MCG 8.8 GM Inhaler IH SCH ×2 (06:04→19:36)
[2017-07-19] MEDS: Multivitamins with Iron/Calcium/Folic Acid/Minerals Tab PO SCH (07:51)
[2017-07-19] MEDS: Cranberry 500 MG Cap PO SCH (07:51)
[2017-07-19] MEDS: Ergocalciferol (Vitamin D2) 50,000 Unit Cap PO SCH (07:51)
[2017-07-19] MEDS: Acetaminophen 500 MG Tab PO PRN ×2 (07:52→22:36)
[2017-07-19] MEDS: Insulin Aspart 100 Units/ML 3 ML Pen SUBCUT SCH ×4 (07:54→19:37)
[2017-07-19] MEDS ORDERED: Lidocaine 5% 700 MG Patch TOP PRN (08:00)
--- NOTE | 2017-07-19 08:31 | ER ---
Date of Service: 07/18/2017 SUBJECTIVE: Aliyah presents to the emergency room with complaints of fatigue DICTATION ENDED ABRUPTLY. MWK: 07/18/2017 14:51:19 MODL: 07/18/2017 20:50:11 /[id number]
--- NOTE | 2017-07-19 08:36 | PCM.PN ---
- General Info Date of Service: 07/19/17 Subjective Update: Patient is upset this morning as she did not sleep well and is having significant diffuse pains. She usually takes tylenol for this and did get a dose shortly before I visited with her. She denies any fever, chills, dysuria, frequency, urgency, or abdominal pain. - Review of Systems General: Reports: No Symptoms HEENT: Reports: No Symptoms Pulmonary: Reports: No Symptoms Cardiovascular: Reports: No Symptoms Gastrointestinal: Reports: No Symptoms Genitourinary: Reports: No Symptoms Musculoskeletal: Reports: Hand Pain, Back Pain Skin: Reports: No Symptoms Neurological: Reports: No Symptoms - Patient Data Vitals - Most Recent: Last Vital Signs Temp 37.2 C 07/19/17 06:00 Pulse 94 07/19/17 06:00 Resp 24 H 07/19/17 06:00 BP 151/65 H 07/19/17 06:00 Pulse Ox 90 L 07/19/17 08:01 Weight - Most Recent: 49.941 kg I&O - Last 24 Hours: Intake & Output 07/18/17 07/19/17 07/19/17 22:59 06:59 14:59 Intake Total 420 869 Output Total 550 Balance -130 869 Lab Results Last 24 Hours: Laboratory Results - last 24 hr 07/18/17 07/18/17 07/19/17 Range/Units 18:16 19:51 06:00 WBC (4.0-10.0) x10^3/uL RBC (4.00-5.50) x10^6/uL Hgb (12.0-16.0) g/dL Hct (33.0-47.0) % MCV (78.0-93.0) fL MCH (26.0-32.0) pg MCHC (32.0-36.0) g/dL RDW Coeff of Bud (10.0-15.0) % Plt Count (130-400) x10^3/uL Add Manual Diff Neutrophils % (Manual) (50-80) % Band Neutrophils % (0-6) % Lymphocytes % (Manual) (25-50) % Atypical Lymphs % (0) % Platelet Estimate Hypochromasia Anisocytosis Sodium (136-145) mmol/L Potassium (3.5-5.1) mmol/L Chloride (98-107) mmol/L Carbon Dioxide (21-32) mmol/L BUN (7-18) mg/dL Creatinine (0.55-1.02) mg/dL Est Cr Clr Drug Dosing mL/min Estimated GFR (MDRD) Glucose (74-106) mg/dL POC Glucose 384 H 351 H 168 H (74-106) mg/dL Lactic Acid (0.4-2.0) mmol/L Calcium (8.5-10.1) mg/dL Corrected Calcium (8.5-10.1) mg/dL Total Bilirubin (0.2-1.0) mg/dL AST (15-37) U/L ALT (14-59) U/L Alkaline Phosphatase (46-116) U/L Total Protein (6.4-8.2) g/dL Albumin (3.4-5.0) g/dL Globulin Albumin/Globulin Ratio 07/19/17 07/19/17 07/19/17 Range/Units 06:25 06:25 06:25 WBC 13.4 H (4.0-10.0) x10^3/uL RBC 4.19 (4.00-5.50) x10^6/uL Hgb 10.4 L (12.0-16.0) g/dL Hct 32.4 L (33.0-47.0) % MCV 77.3 L (78.0-93.0) fL MCH 24.8 L (26.0-32.0) pg MCHC 32.1 (32.0-36.0) g/dL RDW Coeff of Bud 17.1 H (10.0-15.0) % Plt Count 82 L (130-400) x10^3/uL Add Manual Diff Yes Neutrophils % (Manual) 76 (50-80) % Band Neutrophils % 9 H (0-6) % Lymphocytes % (Manual) 14 L (25-50) % Atypical Lymphs % 1 H (0) % Platelet Estimate Decreased L Hypochromasia 1+ slight H Anisocytosis 1+ slight H Sodium 137 (136-145) mmol/L Potassium 3.6 (3.5-5.1) mmol/L Chloride 107 (98-107) mmol/L Carbon Dioxide 20 L (21-32) mmol/L BUN 31 H (7-18) mg/dL Creatinine 1.5 H (0.55-1.02) mg/dL Est Cr Clr Drug Dosing 21.84 mL/min Estimated GFR (MDRD) 33 Glucose 196 H (74-106) mg/dL POC Glucose (74-106) mg/dL Lactic Acid 1.3 (0.4-2.0) mmol/L Calcium 7.8 L (8.5-10.1) mg/dL Corrected Calcium 8.84 (8.5-10.1) mg/dL Total Bilirubin 0.3 (0.2-1.0) mg/dL AST 28 (15-37) U/L ALT 29 (14-59) U/L Alkaline Phosphatase 163 H (46-116) U/L Total Protein 7.3 (6.4-8.2) g/dL Albumin 2.7 L (3.4-5.0) g/dL Globulin 4.6 Albumin/Globulin Ratio 0.59 Med Orders - Current: Current Medications Acetaminophen (Tylenol Extra Strength) 500 mg PO Q4H PRN PRN Reason: Pain Last Admin: 07/19/17 07:52 Dose: 500 mg Albuterol (Ventolin Hfa) 0 gm INH QID PRN PRN Reason: Shortness of Breath Cranberry (Cranberry) 500 mg PO DAILY [facility] Last Admin: 07/19/17 07:51 Dose: 500 mg Ergocalciferol (Vitamin D2) 50,000 units PO Fr@0800 [facility] Last Admin: 07/19/17 07:51 Dose: 50,000 units Glipizide (Glucotrol) 10 mg PO DAILY [facility] Last Admin: 07/19/17 07:51 Dose: 10 mg Ampicillin Sodium/Sulbactam (Sodium 3 gm/ Sodium Chloride) 100 mls @ 200 mls/ hr IV Q12H [facility] Last Admin: 07/19/17 01:23 Dose: 200 mls/hr Sodium Chloride (Normal Saline) 1,000 mls @ 100 mls/hr IV ASDIRECTED [facility] Last Admin: 07/19/17 03:14 Dose: 100 mls/hr Insulin Aspart (Novolog) 0 unit SUBCUT WITHMEALSANDBED [facility] PRN Reason: Protocol Last Admin: 07/19/17 07:54 Dose: 1 units Levothyroxine Sodium (Levothyroxine) 112 mcg PO MoTuThFrSa@0700 [facility] Last Admin: 07/19/17 06:01 Dose: 112 mcg Levothyroxine Sodium (Levothyroxine) 125 mcg PO SuWe@0700 [facility] Lidocaine (Lidoderm 5%) 700 mg TOP DAILY PRN PRN Reason: Pain Mometasone Furoate/Formoterol Fumar (Dulera 200-5 Mcg) 2 puff IH BIDRT [facility] Last Admin: 07/19/17 06:04 Dose: 2 puff Multivitamins/Minerals (Thera M Plus) 1 tab PO DAILY [facility] Last Admin: 07/19/17 07:51 Dose: 1 tab Omeprazole (Omeprazole) 20 mg PO BIDAC [facility] Last Admin: 07/19/17 06:02 Dose: 20 mg Sodium Chloride (Saline Flush) 10 ml FLUSH ASDIRECTED PRN PRN Reason: Keep Vein Open Discontinued Medications Acetaminophen (Tylenol Extra Strength) 500 mg PO Q4HR PRN PRN Reason: Pain Ampicillin Sodium/Sulbactam (Sodium 3 gm/ Sodium Chloride) 100 mls @ 200 mls/ hr IV ONETIME ONE Stop: 07/18/17 13:50 Last Admin: 07/18/17 13:56 Dose: 200 mls/hr - Exam General: Alert, Cooperative, No Acute Distress HEENT: Mucous Membr. Moist/[place] Neck: Supple, Trachea Midline, No Thyromegaly. No: Lymphadenopathy Lungs: Clear to Auscultation, Normal Respiratory Effort Cardiovascular: Regular Rate, Regular Rhythm, No Murmurs GI/Abdominal Exam: Normal Bowel Sounds, Soft, Non-Tender, No Organomegaly, No Distention, No Mass Back Exam: No: CVA Tenderness (L), CVA Tenderness (R) Extremities: Normal Inspection, Non-Tender, No Pedal Edema, Normal Capillary Refill Skin: Warm, Dry, Intact - Problem List & Annotations (1) Urinary tract infection SNOMED Code(s): 16851366 Code(s): N39.0 - URINARY TRACT INFECTION, SITE NOT SPECIFIED Status: Acute Current Visit: Yes Qualifiers: Urinary tract infection type: site unspecified Hematuria presence: without hematuria Qualified Code(s): N39.0 - Urinary tract infection, site not specified Annotation/Comment:: - Patient does not have symptoms or exam findings of pyelonephritis but had a significant leukocytosis suggesting at least some component of an ascending infection. - Continue unasyn. - Urine culture has already been done for this UTI and susceptibilities are available. However, patient would still benefit from 48 hours of IV antibiotics. Will clarify what her reaction was to the augmentin to determine next steps for homegoing. (2) Acute kidney failure SNOMED Code(s): 69006424 Code(s): N17.9 - ACUTE KIDNEY FAILURE, UNSPECIFIED Status: Acute Current Visit: Yes Annotation/Comment:: - Collision Technician up to 2.0 yesterday and back down to 1.5 today. - Likely prerenal secondary to dehydration. - D/C IV fluids and have her push PO fluids instead. - Recheck creatinine tomorrow. (3) Chronic kidney disease SNOMED Code(s): 420067612 Code(s): N18.9 - CHRONIC KIDNEY DISEASE, UNSPECIFIED Status: Chronic Current Visit: Yes Qualifiers: Chronic kidney disease stage: stage 3 (moderate) Qualified Code(s): N18.3 - Chronic kidney disease, stage 3 (moderate) Annotation/Comment:: - See above. (4) Generalized weakness SNOMED Code(s): 11246066 Code(s): R53.1 - WEAKNESS Status: Acute Current Visit: No Annotation/ Comment:: - Secondary to her UTI. - PT/OT consults are pending. - Patient does have 24 hour supervision at home by family. (5) Diabetes mellitus SNOMED Code(s): 69793069 Code(s): E11.9 - TYPE 2 DIABETES MELLITUS WITHOUT COMPLICATIONS Status: Chronic Current Visit: No Qualifiers: Diabetes mellitus type: type 2 Diabetes mellitus complication status: with unspecified complications Diabetes mellitus care home insulin use: without ad terminal makeup operator use Qualified Code(s): E11.8 - Type 2 diabetes mellitus with unspecified complications Annotation/Comment:: - Glucose high on admission but improved today. Typically runs in the 200's. - Glipizide continued. - QID glucoses with insulin correction scale. - Problem List Review Problem List Initiated/Reviewed/Updated: Yes - Assessment Assessment:: 77 yo female admitted with a UTI that was not responsive to outpatient therapy. Labs are looking much better today. Patient has no complaints related to the UTI , only in regard to her ad terminal makeup operator pain. - Plan Plan:: See details under problems above. Patient is admitted to inpatient - would ideally keep her 1 more night but I am not sure she will agree to this. Will discuss further when her family arrives. Otherwise, d/c IV fluids and have her push PO's. No other medication changes today. PT/OT consults. Patient is full code. SCD's for VTE prophylaxis as patient recently had a GI bleed.
[2017-07-19] MEDS ORDERED: Insulin Aspart 100 Units/ML 3 ML Pen SUBCUT ONE (11:16)
[2017-07-19] MEDS: Sodium Chloride 0.9% 10 ML Syringe FLUSH PRN (19:45)
[2017-07-20] MEDS: Ampicillin/Sulbactam Na 3 GM in Sodium Chloride 0.9% 100 ML IV SCH ×2 (01:50→13:05)
[2017-07-20] MEDS: Formoterol/Mometasone 200-5 MCG 8.8 GM Inhaler IH SCH ×2 (06:11→19:59)
[2017-07-20] MEDS: Omeprazole 20 MG Cap.CR PO SCH ×2 (06:11→16:07)
[2017-07-20] MEDS: Levothyroxine 112 MCG Tab PO SCH (06:11)
[2017-07-20] MEDS: Sodium Chloride 0.9% 10 ML Syringe FLUSH PRN ×3 (07:27→20:07)
[2017-07-20] MEDS: Multivitamins with Iron/Calcium/Folic Acid/Minerals Tab PO SCH (07:27)
[2017-07-20] MEDS: Cranberry 500 MG Cap PO SCH (07:28)
[2017-07-20] MEDS: Insulin Aspart 100 Units/ML 3 ML Pen SUBCUT SCH ×4 (07:29→20:05)
[2017-07-20] MEDS: Acetaminophen 500 MG Tab PO PRN ×3 (07:34→20:58)
--- NOTE | 2017-07-20 11:13 | PN ---
Progress Note for KYLE CRENSHAW Date: 07/20/2017 Room #: VM.214 SUBJECTIVE: This is hospital day #3 on a 77-year-old admitted with a UTI, failing outpatient treatment as she was initially treated with Cipro. E. coli was resistant to that and she was started on Augmentin. She denies any abdominal pain or nausea today. She states she is eating and drinking well, but she just feels weak. She has no cough or shortness of breath. She has been eating 25 to 50% of her meals, but her blood sugars have been considerably elevated, even up to 407 yesterday, getting 7 units of insulin, and she is not normally on insulin. She takes glipizide. Blood pressures are also elevated. We plan to recheck manually. She has never been on blood pressure pills by her report, and I could find no history of it. Otherwise, she is up in the chair this morning. She has not really been even walking to the bathroom. She had 2 soft stools yesterday. No incontinence. No incontinence of urine. She is not on DVT prophylaxis due to a history of GI bleeding and low platelets. She is followed outpatient by Hematology and has had some IV iron infusions. PHYSICAL EXAMINATION: Vital Signs: Otherwise, objectively this morning, weight 48.4 kg, temperature 98.0, blood pressure 163/75, heart rate 83, respiratory rate 22, and O2 of 97% on room air. General: She is in no acute distress. Heart: Regular rate and rhythm. S1 and S2 without murmur. Respiratory: Lung sounds are clear to auscultation bilaterally without crackles or wheezes. Abdomen: Has positive bowel sounds. Soft and nontender. Extremities: Warm and dry. No edema. Mental Status: She is alert and orientated x3. LABORATORY DATA AND IMAGING STUDIES: Laboratory work reviewed. White count is still elevated at 14.1, hemoglobin 10.7, and stable platelets up from 82,000 to 89,000. Sodium 136, potassium 3.6, chloride 102, bicarbonate 23, BUN 23, creatinine 1.4, glucose 318, albumin on admission was low at 2.7, and calcium 8.4. ASSESSMENT AND PLAN: 1. Escherichia coli urinary tract infection. We will do a bladder scan today. I will continue IV Unasyn, now day #3, but she did not start to later in the afternoon, so she will complete at least 48 hours, and likely go over to oral Augmentin tomorrow. 2. Acute renal failure. Creatinine up to 2 on admission. Her baseline is around 1.2 to 1.3. It is improved to 1.4 today. She is off IV fluids. We are encouraging oral intake. 3. Chronic kidney disease, stage III. Baseline is 1.2 to 1.3. 4. Generalized weakness due to urinary tract infection. The patient declined to work with PT yesterday. Family is hopeful that she may qualify for swing bed, but we will take this day-by-day and this was discussed with her son today. 5. Type 2 diabetes, uncontrolled without insulin and without complications. Blood sugars are quite high, could be due to her infection. Last A1c this spring was like 7.6, and she is due for another A1c through the clinic soon. At this point, she is on q.i.d. checks. I think given her very thin, frail, elderly female with renal insufficiency, Actos may be a good option for her. We will start 15 units orally today. 6. Elevated blood pressures with no history of hypertension. I am going to have the nurses recheck it manually. We will continue to monitor. 7. Reported history of diastolic heart failure. This is stable without exacerbation. I do not think this is a contraindication to trying the Actos at this point. PLAN: The patient will continue acute cares. She will continue IV Unasyn. We will get her up and walking in her room, into the bathroom. We will continue to monitor for any further loose stools or diarrhea. Family was updated for DVT prophylaxis. She is on SCDs. Code level 1. MKA: 07/20/2017 10:10:52 MODL: 07/20/2017 11:03:13 /[id number]
[2017-07-20] MEDS: Pioglitazone 15 MG Tab PO SCH (11:16)
[2017-07-21] MEDS: Ampicillin/Sulbactam Na 3 GM in Sodium Chloride 0.9% 100 ML IV SCH (02:14)
[2017-07-21] MEDS: Sodium Chloride 0.9% 10 ML Syringe FLUSH PRN ×3 (02:15→22:02)
[2017-07-21] MEDS: Acetaminophen 500 MG Tab PO PRN ×4 (02:18→22:01)
[2017-07-21] MEDS: Omeprazole 20 MG Cap.CR PO SCH ×2 (06:20→16:13)
[2017-07-21] MEDS: Formoterol/Mometasone 200-5 MCG 8.8 GM Inhaler IH SCH ×2 (06:26→20:01)
[2017-07-21] MEDS ORDERED: Levothyroxine 125 MCG Tab PO SCH (07:00)
[2017-07-21] MEDS: Multivitamins with Iron/Calcium/Folic Acid/Minerals Tab PO SCH (07:22)
[2017-07-21] MEDS: Pioglitazone 15 MG Tab PO SCH (07:22)
[2017-07-21] MEDS: Cranberry 500 MG Cap PO SCH (07:22)
[2017-07-21] MEDS: Insulin Aspart 100 Units/ML 3 ML Pen SUBCUT SCH ×4 (07:24→20:01)
[2017-07-21] MEDS ORDERED: Amoxicillin/Clavulanate K 875-125 MG Tab PO SCH (10:15)
--- NOTE | 2017-07-21 11:21 | PN ---
Progress Note for KYLE CRENSHAW Date: 07/21/2017 Room #: VM.214 SUBJECTIVE: This is hospital day #4 on a 77-year-old admitted with weakness secondary to UTI. She continues to feel weak, but yesterday she was able to get up and walk with the nursing to the bathroom. She has been afebrile. She has had good oral intake with 50-100% of evening meals, but only 25% of breakfast. She denies any burning with urination or abdominal pain currently, but she did have a little bit of abdominal pain earlier today. She is not coughing or short of breath. She admits she is a previous smoker. She used to weigh like 140 pounds a year ago and now she is down to 110, and has even lost a few pounds on this admission. She has had recent adjustments in her thyroid medication, but actually she was hypothyroid. Otherwise, she has been tolerating the IV Unasyn. OBJECTIVE: Vital Signs: Her temperature is 97.6, pulse 78, blood pressure 149/59, respiratory rate 16, O2 98 on room air. General: She is in no acute distress. Cardiac: Her heart is regular rate and rhythm without murmur. Respiratory: Lungs sounds are clear to auscultation with some faint crackles in the bases. Abdomen: Positive bowel sounds. Soft and nontender. Extremities: Warm and dry. No edema. Mental Status: She is alert. She is orientated x2. Skin: Darker due to ethnicity. She has lots of age-related changes throughout her face. LABORATORY DATA: Lab work reviewed from today shows white count to have improved down to 11.6, hemoglobin stable at 10.5, platelets up to 100. Sodium 136, potassium 3.7, chloride 103, bicarb 27, BUN 22, creatinine 1.4, glucose 304, calcium 8.2, alkaline phosphatase 161, otherwise ALT and AST normal. Albumin low at 3. ASSESSMENT: 1. Urinary tract infection due to Escherichia coli, now on appropriate antibiotics per culture with IV Unasyn, completed 3 full days. Now she will be on oral Augmentin. She got her last dose of Unasyn this morning. 2. Acute renal failure. Creatinine up to 2 on admission. She has been off IV fluids over 48 hours. Her creatinine is now stable at 1.4. 3. Chronic kidney disease, baseline 1.2-1.3. 4. Diabetes type 2, uncontrolled with blood sugars into the higher 200s and 300 currently. We started Actos yesterday. She is tolerating that. We will keep it at 15 mg daily. She is also on glipizide. 5. Generalized weakness due to urinary tract infection. The patient was unable to work with PT Saturday due to being ill. She will give it another try Saturday prior to going home unless she qualifies for swing bed. 6. Elevated blood pressures. This seems to be improved. We will continue to monitor. 7. Reported history of diastolic heart failure, stable without any exacerbation. We will monitor especially with the Actos. 8. Moderate malnutrition with albumin of 3 and significant weight loss in the last year. I would add some protein powder 15 g daily. She will follow up also outpatient with Dr. Cast in the clinic. 9. Hypothyroidism. She is on replacement. PLAN: The patient will continue acute cares as she feels she is too weak to go home. She will be reassessed by Physical Therapy to see if she meets requirements for swing bed. If not, she will go home with home health. She will be switched over to oral antibiotics this afternoon to ensure that she is tolerating them. For DVT prophylaxis, she is on SCDs as she does have a history of GI bleeding. Discussed again with her that she is a code level 1. Therefore, we will leave her IV in place in case if it is needed. MKA: 07/21/2017 10:20:38 MODL: 07/21/2017 11:15:23 /[id number]
[2017-07-21] MEDS: Amoxicillin/Clavulanate K 875-125 MG Tab PO SCH (19:59)
[2017-07-22] MEDS: Acetaminophen 500 MG Tab PO PRN ×2 (06:11→12:27)
[2017-07-22] MEDS: Levothyroxine 112 MCG Tab PO SCH (06:11)
[2017-07-22] MEDS: Omeprazole 20 MG Cap.CR PO SCH (06:11)
[2017-07-22] MEDS: Formoterol/Mometasone 200-5 MCG 8.8 GM Inhaler IH SCH (06:12)
[2017-07-22] MEDS: Cranberry 500 MG Cap PO SCH (08:14)
[2017-07-22] MEDS: Amoxicillin/Clavulanate K 875-125 MG Tab PO SCH (08:14)
[2017-07-22] MEDS: Multivitamins with Iron/Calcium/Folic Acid/Minerals Tab PO SCH (08:15)
[2017-07-22] MEDS: Insulin Aspart 100 Units/ML 3 ML Pen SUBCUT SCH ×2 (08:17→11:51)
--- NOTE | 2017-07-22 08:25 | PCM.PN ---
- General Info Date of Service: 07/22/17 Subjective Update: Patient's only complaint again this morning is leg and back pain. No dysuria, fever, or chills. No new complains. Stayed over the weekend due to generalized weakness. PT will see today. - Review of Systems General: Reports: No Symptoms HEENT: Reports: No Symptoms Pulmonary: Reports: No Symptoms Cardiovascular: Reports: No Symptoms Gastrointestinal: Reports: No Symptoms Genitourinary: Reports: No Symptoms Neurological: Reports: No Symptoms - Patient Data Vitals - Most Recent: Last Vital Signs Temp 36.5 C 07/22/17 06:00 Pulse 86 07/22/17 06:00 Resp 18 07/22/17 06:00 BP 173/64 H 07/22/17 06:00 Pulse Ox 90 L 07/22/17 07:40 Weight - Most Recent: 46.833 kg I&O - Last 24 Hours: Intake & Output 07/21/17 07/22/17 07/22/17 22:59 06:59 14:59 Intake Total 200 100 Output Total 850 250 Balance -650 100 -250 Lab Results Last 24 Hours: Laboratory Results - last 24 hr 07/21/17 07/21/17 07/21/17 Range/Units 07:35 07:35 10:34 Neutrophils % (Manual) 72 (50-80) % Band Neutrophils % 5 (0-6) % Lymphocytes % (Manual) 22 L (25-50) % Metamyelocytes % 1 H (0) % Platelet Estimate Decreased L Anisocytosis 1+ slight H Sodium 136 (136-145) mmol/L Potassium 3.7 (3.5-5.1) mmol/L Chloride 103 (98-107) mmol/L Carbon Dioxide 27 (21-32) mmol/L BUN 22 H (7-18) mg/dL Creatinine 1.4 H (0.55-1.02) mg/dL Est Cr Clr Drug Dosing 23.40 mL/min Estimated GFR (MDRD) 36 Glucose 304 H (74-106) mg/dL POC Glucose 358 H (74-106) mg/dL Calcium 8.2 L (8.5-10.1) mg/dL Corrected Calcium 9.00 (8.5-10.1) mg/dL Total Bilirubin 0.3 (0.2-1.0) mg/dL AST 27 (15-37) U/L ALT 32 (14-59) U/L Alkaline Phosphatase 161 H (46-116) U/L Total Protein 7.6 (6.4-8.2) g/dL Albumin 3.0 L (3.4-5.0) g/dL Globulin 4.6 Albumin/Globulin Ratio 0.65 07/21/17 07/21/17 07/22/17 Range/Units 16:16 19:58 06:10 Neutrophils % (Manual) (50-80) % Band Neutrophils % (0-6) % Lymphocytes % (Manual) (25-50) % Metamyelocytes % (0) % Platelet Estimate Anisocytosis Sodium (136-145) mmol/L Potassium (3.5-5.1) mmol/L Chloride (98-107) mmol/L Carbon Dioxide (21-32) mmol/L BUN (7-18) mg/dL Creatinine (0.55-1.02) mg/dL Est Cr Clr Drug Dosing mL/min Estimated GFR (MDRD) Glucose (74-106) mg/dL POC Glucose 265 H 331 H 271 H (74-106) mg/dL Calcium (8.5-10.1) mg/dL Corrected Calcium (8.5-10.1) mg/dL Total Bilirubin (0.2-1.0) mg/dL AST (15-37) U/L ALT (14-59) U/L Alkaline Phosphatase (46-116) U/L Total Protein (6.4-8.2) g/dL Albumin (3.4-5.0) g/dL Globulin Albumin/Globulin Ratio Med Orders - Current: Current Medications Acetaminophen (Tylenol Extra Strength) 500 mg PO Q4H PRN PRN Reason: Pain Last Admin: 07/22/17 06:11 Dose: 500 mg Albuterol (Ventolin Hfa) 0 gm INH QID PRN PRN Reason: Shortness of Breath Amoxicillin/Clavulanate Potassium (Augmentin 875 Mg/125 Mg) 1 tab PO Q12HR [facility] Last Admin: 07/22/17 08:14 Dose: 1 tab Cranberry (Cranberry) 500 mg PO DAILY [facility] Last Admin: 07/22/17 08:14 Dose: 500 mg Ergocalciferol (Vitamin D2) 50,000 units PO Fr@0800 [facility] Last Admin: 07/19/17 07:51 Dose: 50,000 units Glipizide (Glucotrol) 10 mg PO DAILY [facility] Last Admin: 07/22/17 08:15 Dose: 10 mg Insulin Aspart (Novolog) 0 unit SUBCUT WITHMEALSANDBED [facility] PRN Reason: Protocol Last Admin: 07/22/17 08:17 Dose: 3 units Levothyroxine Sodium (Levothyroxine) 112 mcg PO MoTuThFrSa@0700 [facility] Last Admin: 07/22/17 06:11 Dose: 112 mcg Levothyroxine Sodium (Levothyroxine) 125 mcg PO SuWe@0700 [facility] Last Admin: 07/21/17 06:30 Dose: 125 mcg Lidocaine (Lidoderm 5%) 700 mg TOP DAILY PRN PRN Reason: Pain Mometasone Furoate/Formoterol Fumar (Dulera 200-5 Mcg) 2 puff IH BIDRT [facility] Last Admin: 07/22/17 06:12 Dose: 2 puff Multivitamins/Minerals (Thera M Plus) 1 tab PO DAILY [facility] Last Admin: 07/22/17 08:15 Dose: 1 tab Omeprazole (Omeprazole) 20 mg PO BIDAC [facility] Last Admin: 07/22/17 06:11 Dose: 20 mg Pioglitazone HCl (Actos) 15 mg PO DAILY [facility] Last Admin: 07/21/17 07:22 Dose: 15 mg Sodium Chloride (Saline Flush) 10 ml FLUSH ASDIRECTED PRN PRN Reason: Keep Vein Open Last Admin: 07/21/17 22:02 Dose: 10 ml Discontinued Medications Acetaminophen (Tylenol Extra Strength) 500 mg PO Q4HR PRN PRN Reason: Pain Amoxicillin/Clavulanate Potassium (Augmentin 875 Mg/125 Mg) 1 tab PO Q12HR [facility] Last Admin: 07/21/17 10:37 Dose: Not Given Ampicillin Sodium/Sulbactam (Sodium 3 gm/ Sodium Chloride) 100 mls @ 200 mls/ hr IV ONETIME ONE Stop: 07/18/17 13:50 Last Admin: 07/18/17 13:56 Dose: 200 mls/hr Ampicillin Sodium/Sulbactam (Sodium 3 gm/ Sodium Chloride) 100 mls @ 200 mls/ hr IV Q12H [facility] Last Admin: 07/21/17 02:14 Dose: 200 mls/hr Sodium Chloride (Normal Saline) 1,000 mls @ 100 mls/hr IV ASDIRECTED [facility] Last Admin: 07/19/17 03:14 Dose: 100 mls/hr Insulin Aspart (Novolog) 7 unit SUBCUT ONETIME ONE Stop: 07/19/17 11:17 Last Admin: 07/19/17 11:32 Dose: 7 units - Exam General: Alert, Cooperative, No Acute Distress HEENT: Mucous Membr. Moist/[place] Neck: Supple, No Thyromegaly. No: Lymphadenopathy Lungs: Clear to Auscultation, Normal Respiratory Effort Cardiovascular: Regular Rate, Regular Rhythm, No Murmurs GI/Abdominal Exam: Normal Bowel Sounds, Soft, Non-Tender, No Organomegaly, No Distention, No Mass Extremities: Non-Tender, No Pedal Edema, Normal Capillary Refill Skin: Warm, Dry, Intact - Problem List & Annotations (1) Urinary tract infection SNOMED Code(s): 26582593 Code(s): N39.0 - URINARY TRACT INFECTION, SITE NOT SPECIFIED Status: Acute Current Visit: Yes Qualifiers: Urinary tract infection type: site unspecified Hematuria presence: without hematuria Qualified Code(s): N39.0 - Urinary tract infection, site not specified Annotation/Comment:: - Resolving. WBC nearly normal yesterday; patient is asymptomatic. - Continue Augmentin to complete a 7 day course. She has tolerated this without any issue. (2) Acute kidney failure SNOMED Code(s): 37058482 Code(s): N17.9 - ACUTE KIDNEY FAILURE, UNSPECIFIED Status: Acute Current Visit: Yes Annotation/Comment:: - Rn Rehab max at 2.0 yesterday and back down to 1.4 yesterday. - Likely prerenal secondary to dehydration. (3) Chronic kidney disease SNOMED Code(s): 096441360 Code(s): N18.9 - CHRONIC KIDNEY DISEASE, UNSPECIFIED Status: Chronic Current Visit: Yes Qualifiers: Chronic kidney disease stage: stage 3 (moderate) Qualified Code(s): N18.3 - Chronic kidney disease, stage 3 (moderate) Annotation/Comment:: - See above. (4) Generalized weakness SNOMED Code(s): 42670334 Code(s): R53.1 - WEAKNESS Status: Acute Current Visit: No Annotation/ Comment:: - Secondary to her UTI. - OT consults completed; PT to see today. - Patient is stable from a medical standpoint for d/c so will either need to transition to swing bed or d/c home today depending on PT recommendations. (5) Diabetes mellitus SNOMED Code(s): 75288275 Code(s): E11.9 - TYPE 2 DIABETES MELLITUS WITHOUT COMPLICATIONS Status: Chronic Current Visit: No Qualifiers: Diabetes mellitus type: type 2 Diabetes mellitus complication status: with unspecified complications Diabetes mellitus residential insulin use: without buttermaker use Qualified Code(s): E11.8 - Type 2 diabetes mellitus with unspecified complications Annotation/Comment:: - Glucoses had continued to run high; therefore, pioglitazone was added over the weekend. - Glipizide continued. - Will need to discuss with family the option of continuing the pioglitazone ( in light of the heart failure and bladder cancer risk) rather than doing insulin instead. - QID glucoses with insulin correction scale. - Problem List Review Problem List Initiated/Reviewed/Updated: Yes - Assessment Assessment:: 77 yo female admitted with a UTI that was not responsive to outpatient therapy. Now asymptomatic from that and awaiting PT consult for disposition planning. - Plan Plan:: See details under problems above. Patient is admitted to inpatient - no longer meeting criteria for this. PT to see her today and then either transition to swing bed or dismiss home. Continue PO antibiotics and oral diabetic agents. Patient is full code. SCD's for VTE prophylaxis - no indication to change this now given she will either be dismissing or transitioning to swing bed today.
[2017-07-22] MEDS: Pioglitazone 15 MG Tab PO SCH (08:30)
[2017-07-22 10:54] VITALS: BP 165/65
--- NOTE | 2017-07-22 12:48 | PCM.DCSUM1 ---
Discharge Summary - Hospital Course Brief History: Mrs. Louie is a 77 yo female who presented to the ER with generalized weakness and was diagnosed with a UTI that had not been successfully treated as an outpatient. - Discharge Data Discharge Date: 07/22/17 Discharge Disposition: Home, Self-Care 01 Condition: Good - Discharge Diagnosis/Problem(s) (1) Urinary tract infection SNOMED Code(s): 79287333 ICD Code: N39.0 - URINARY TRACT INFECTION, SITE NOT SPECIFIED Status: Acute Current Visit: Yes Problem Details: Patient presented with generalized weakness and was diagnosed with a UTI. Had previously been treated as an outpatient but had only been switched to a susceptible antibiotic the day prior to admission. She was treated with unasyn and then transitioned to augmentin once improving. Her UTI symptoms resolved and her WBC steadily improved. She had no difficulty with tolerating the antibiotics. Qualifiers: Urinary tract infection type: site unspecified Hematuria presence: without hematuria Qualified Code(s): N39.0 - Urinary tract infection, site not specified (2) Acute kidney failure SNOMED Code(s): 55319886 ICD Code: N17.9 - ACUTE KIDNEY FAILURE, UNSPECIFIED Status: Acute Current Visit: Yes Problem Details: Creatinine on admission was 2.0. She was treated with IV fluids and her creatinine improved to 1.4 as of 07/21. (3) Chronic kidney disease SNOMED Code(s): 336353004 ICD Code: N18.9 - CHRONIC KIDNEY DISEASE, UNSPECIFIED Status: Chronic Current Visit: Yes Problem Details: See above. Qualifiers: Chronic kidney disease stage: stage 3 (moderate) Qualified Code(s): N18.3 - Chronic kidney disease, stage 3 (moderate) (4) Generalized weakness SNOMED Code(s): 57265844 ICD Code: R53.1 - WEAKNESS Status: Acute Current Visit: No Problem Details: As above, this was her presenting complaint. It is felt secondary to her UTI as well as general debility. PT and OT consults have been completed. They felt the patient was at her previous baseline and did not feel she would benefit from a swing bed stay. Therefore, she will be dismissed home under the care of her family. (5) Diabetes mellitus SNOMED Code(s): 87273563 ICD Code: E11.9 - TYPE 2 DIABETES MELLITUS WITHOUT COMPLICATIONS Status: Chronic Current Visit: No Problem Details: The patient has had significant difficulty with hyperglycemia during her admission. Her glipizde was continued and she was on correction scale insulin. Due to ongoing hyperglycemia, pioglitazone was added over the weekend. Due to the risk of heart failure and bladder cancer with the pioglitazone, the following options were discussed with family: continue the glipizide alone and see how her sugars are at home (has traditionally done fine on this alone after d/c), start lantus and d/c glipizide , or continue the glipizide and pioglitazone. After this discussion, the patient and her family elected to continue the glipizide alone. Will have them check her sugars more often and get an A1c before follow-up and then go from there. Qualifiers: Diabetes mellitus type: type 2 Diabetes mellitus complication status: with unspecified complications Diabetes mellitus terminal operations manager insulin use: without senior living use Qualified Code(s): E11.8 - Type 2 diabetes mellitus with unspecified complications - Patient Summary/Data Operative Procedure(s) Performed: none Complications: none Consults: Consultations 07/18/17 14:38 Consult to Pbx Operator [CONS] Routine Labs Pending at D/C: none Recommended Follow-up Testing/Procedures: Home Health Certification [id number] completed on 07/22 Patient is homebound as she needs assistance of others as well as a walker to leave the home. Needs PT for strengthening following her hospitalization for UTI complicated by generalized weakness. Planned Operative Procedure(s) after DC: none Hospital Course: See details above. Her UTI symptoms and labs rapidly improved. She remained admitted through the weekend due to generalized weakness and was evaluated by PT today. They did not feel she would benefit from a swing bed stay. Therefore, the patient will be dismissed under the care of her family. - Patient Instructions Diet: Diabetic Diet Activity: As Tolerated Driving: Do Not Drive Showering/Bathing: May Shower Notify Provider of: Fever, Increased Pain, Nausea and/or Vomiting - Discharge Plan Home Medications: Home Meds Albuterol [IJD: Ventolin HFA] 2 puff INH QID PRN 05/07/17 [History] Cranberry 1 cap PO DAILY 05/07/17 [History] Fluticasone/Salmeterol [Advair 250-50 Diskus] 1 puff INH BID 05/07/17 [History] Levothyroxine 112 mcg PO ACBREAKFAST 05/07/17 [History] Lidocaine 5% [Lidoderm 5%] 1 patch TOP DAILY PRN 05/07/17 [History] Multivitamin [Daily Iris] 1 each PO DAILY 05/07/17 [History] Omeprazole 20 mg PO BIDAC 05/07/17 [History] glipiZIDE [Glucotrol] 10 mg PO DAILY 05/07/17 [History] Acetaminophen [Pain & Fever] 500 mg PO Q4HR PRN 07/18/17 [History] Ergocalciferol (Vitamin D2) [Vitamin D2] 50,000 units PO WEEKLY 07/18/17 [ History] Levothyroxine 125 mcg PO ACBREAKFAST 07/18/17 [History] Amoxicillin/Clavulanate K [Augmentin 875 MG/125 MG] 1 tab PO Q12HR tablet 07/22 [Rx] Forms: ED Department Discharge Referrals: PCP,Not In Area [Primary Care Provider] - - Discharge Summary/Plan Comment DC Time >30 min.: No - General Info Date of Service: 07/22/17 Subjective Update: See today's progress note for details of subjective and objective updates. - Patient Data Vitals - Most Recent: Last Vital Signs Temp 36.8 C 07/22/17 10:00 Pulse 79 07/22/17 10:00 Resp 24 H 07/22/17 10:00 BP 165/65 H 07/22/17 10:00 Pulse Ox 98 07/22/17 10:00 Weight - Most Recent: 46.833 kg I&O - Last 24 hours: Intake & Output 07/21/17 07/22/17 07/22/17 22:59 06:59 14:59 Intake Total 006 075 8873 Output Total 850 550 Balance -650 100 490 Lab Results - Last 24 hrs: Laboratory Results - last 24 hr 07/21/17 07/21/17 07/22/17 Range/Units 16:16 19:58 06:10 POC Glucose 265 H 331 H 271 H (74-106) mg/dL 07/22/17 Range/Units 11:32 POC Glucose 346 H (74-106) mg/dL Med Orders - Current: Current Medications Acetaminophen (Tylenol Extra Strength) 500 mg PO Q4H PRN PRN Reason: Pain Last Admin: 07/22/17 12:27 Dose: 500 mg Albuterol (Ventolin Hfa) 0 gm INH QID PRN PRN Reason: Shortness of Breath Amoxicillin/Clavulanate Potassium (Augmentin 875 Mg/125 Mg) 1 tab PO Q12HR [facility] Last Admin: 07/22/17 08:14 Dose: 1 tab Cranberry (Cranberry) 500 mg PO DAILY [facility] Last Admin: 07/22/17 08:14 Dose: 500 mg Ergocalciferol (Vitamin D2) 50,000 units PO Fr@0800 [facility] Last Admin: 07/19/17 07:51 Dose: 50,000 units Glipizide (Glucotrol) 10 mg PO DAILY [facility] Last Admin: 07/22/17 08:15 Dose: 10 mg Insulin Aspart (Novolog) 0 unit SUBCUT WITHMEALSANDBED [facility] PRN Reason: Protocol Last Admin: 07/22/17 11:51 Dose: 4 units Levothyroxine Sodium (Levothyroxine) 112 mcg PO MoTuThFrSa@0700 [facility] Last Admin: 07/22/17 06:11 Dose: 112 mcg Levothyroxine Sodium (Levothyroxine) 125 mcg PO SuWe@0700 [facility] Last Admin: 07/21/17 06:30 Dose: 125 mcg Lidocaine (Lidoderm 5%) 700 mg TOP DAILY PRN PRN Reason: Pain Mometasone Furoate/Formoterol Fumar (Dulera 200-5 Mcg) 2 puff IH BIDRT [facility] Last Admin: 07/22/17 06:12 Dose: 2 puff Multivitamins/Minerals (Thera M Plus) 1 tab PO DAILY [facility] Last Admin: 07/22/17 08:15 Dose: 1 tab Omeprazole (Omeprazole) 20 mg PO BIDAC [facility] Last Admin: 07/22/17 06:11 Dose: 20 mg Pioglitazone HCl (Actos) 15 mg PO DAILY [facility] Last Admin: 07/22/17 08:30 Dose: 15 mg Sodium Chloride (Saline Flush) 10 ml FLUSH ASDIRECTED PRN PRN Reason: Keep Vein Open Last Admin: 07/21/17 22:02 Dose: 10 ml Discontinued Medications Acetaminophen (Tylenol Extra Strength) 500 mg PO Q4HR PRN PRN Reason: Pain Amoxicillin/Clavulanate Potassium (Augmentin 875 Mg/125 Mg) 1 tab PO Q12HR [facility] Last Admin: 07/21/17 10:37 Dose: Not Given Ampicillin Sodium/Sulbactam (Sodium 3 gm/ Sodium Chloride) 100 mls @ 200 mls/ hr IV ONETIME ONE Stop: 07/18/17 13:50 Last Admin: 07/18/17 13:56 Dose: 200 mls/hr Ampicillin Sodium/Sulbactam (Sodium 3 gm/ Sodium Chloride) 100 mls @ 200 mls/ hr IV Q12H [facility] Last Admin: 07/21/17 02:14 Dose: 200 mls/hr Sodium Chloride (Normal Saline) 1,000 mls @ 100 mls/hr IV ASDIRECTED [facility] Last Admin: 07/19/17 03:14 Dose: 100 mls/hr Insulin Aspart (Novolog) 7 unit SUBCUT ONETIME ONE Stop: 07/19/17 11:17 Last Admin: 07/19/17 11:32 Dose: 7 units *Q Meaningful Use (DIS) - VTE *Q VTE Criteria *Q: - Stroke *Q Stroke Criteria *Q: - AMI *Q AMI Criteria *Q:
== END 2017-07-22 15:30 | disposition home health service (06) | DRG 690 ==
LOC: VM.ED 12:23 → VM.MS 14:15
PROVIDERS: ADMIT Family Medicine; ATTEND Family Medicine
DX: A41.9 Sepsis, unspecified organism (principal); N39.0 Urinary tract infection, site not specified; N17.9 Acute kidney failure, unspecified; I50.9 Heart failure, unspecified; I50.30 Unspecified diastolic (congestive) heart failure; C92.10 Chronic myeloid leukemia, BCR/ABL-positive, not having achieved remission; E11.9 Type 2 diabetes mellitus without complications; E46 Unspecified protein-calorie malnutrition; B96.20 Unspecified Escherichia coli [E. coli] as the cause of diseases classified elsewhere; N18.3 Chronic kidney disease, stage 3 (moderate); J44.9 Chronic obstructive pulmonary disease, unspecified; E03.9 Hypothyroidism, unspecified; E11.65 Type 2 diabetes mellitus with hyperglycemia; Z79.899 Other long term (current) drug therapy; Z79.84 Long term (current) use of oral hypoglycemic drugs; Z88.6 Allergy status to analgesic agent; I10 Essential (primary) hypertension; R53.1 Weakness
CPT/HCPCS: 36415; 71020; 80053; 83605; 85025; 85610; 86140; 87040 ×2; 96365; 99284; J0295; J7050; 80048; 82962; 94760; 97161-GP; 97165-GO; A9270-GY; J1815-GY; J7030

== ENCOUNTER 2017-12-10 11:41 | Observation (INO) | payer MEDICAID, MEDICARE ==
[2017-12-10 12:36] LABS: CHLORIDE,CL 99 mmol/L (98-107); SODIUM,NA 132 mmol/L (136-145)
[2017-12-10] MEDS ORDERED: Lactated Ringers 1,000 ML IV STA (14:03)
--- NOTE | 2017-12-10 14:12 | EDM.PDOC ---
ED HPI GENERAL MEDICAL PROBLEM - General Chief Complaint: General Stated Complaint: ER Time Seen by Provider: 12/10/17 11:41 Source of Information: Reports: Patient, Family, Old Records, Provider, RN, RN Notes Reviewed History Limitations: Reports: No Limitations - History of Present Illness INITIAL COMMENTS - FREE TEXT/NARRATIVE: 77-year-old female patient is brought to the emergency room by her daughter-in- law per the request patient. The patient states that she is in the emergency room to have her Cano catheter removed. Patient is also requesting to be admitted for nursing services. The patient is a poor historian due to advanced dementia. The patient does not offer any specific complaints with her health. Perineal Area Pain Score (Numeric/FACES): 10 - Related Data Allergies Allergy/AdvReac Type Severity Reaction Status Date / Time fentanyl Allergy Anaphylactic Verified 12/10/17 13:17 Shock hydromorphone AdvReac Other Verified 12/10/17 13:17 remifentanil AdvReac Respiratory Verified 12/10/17 13:17 Depression Home Meds: Home Meds Albuterol [IJD: Ventolin HFA] 2 puff INH QID PRN 05/07/17 [History] Cranberry 1 cap PO DAILY 05/07/17 [History] Fluticasone/Salmeterol [Advair 250-50 Diskus] 1 puff PO BID 05/07/17 [History] Levothyroxine 112 mcg PO MOTUTHFRSA@0700 05/07/17 [History] Acetaminophen [Pain & Fever] 1,000 mg PO Q4HR PRN 07/18/17 [History] Ergocalciferol (Vitamin D2) [Vitamin D2] 50,000 units PO Q7D 07/18/17 [History] Levothyroxine 125 mcg PO SUWE@0700 07/18/17 [History] Doxylamine Succinate [Unisom] 25 mg PO BEDTIME PRN 10/24/17 [History] Melatonin 5 mg PO BEDTIME 10/24/17 [History] Pregabalin [Lyrica] 25 mg PO BEDTIME PRN 10/24/17 [History] traMADol [Ultram] 25 mg PO Q6H PRN 10/24/17 [History] Multivit &Minerals/Ferrous Fum [Multivitamin Liquid] 15 ml PO DAILY 10/25/17 [ History] Ciprofloxacin HCl [Cipro] 500 mg PO Q12H 12/10/17 [History] Insulin Glarg,Human.Rec.Analog [LantUS Solostar] 16 units SUBCUT BEDTIME [History] Insulin Lispro [Humalog] 4 units SQ DAILY@1800 PRN 12/10/17 [History] Vancomycin 250 mg PO QID 12/10/17 [History] Past Medical History HEENT History: Reports: Other (See Below) Other HEENT History: eye surgery Cardiovascular History: Reports: Heart Failure Respiratory History: Reports: COPD Gastrointestinal History: Reports: GI Bleed, Other (See Below) Other Gastrointestinal History: C diff Genitourinary History: Reports: Chronic Renal Insuffiency Musculoskeletal History: Reports: None Neurological History: Reports: None Other Neuro History: Recent diagnosis of Dementia Psychiatric History: Reports: Depression Endocrine/Metabolic History: Reports: Diabetes, Type II, Hypothyroidism Hematologic History: Reports: Anemia, Iron Deficiency Oncologic (Cancer) History: Reports: Other (See Below) Other Oncologic History: chronic CML Dermatologic History: Reports: None - Infectious Disease History Infectious Disease History: Reports: None, C-Difficile - Past Surgical History HEENT Surgical History: Reports: Eye Surgery GI Surgical History: Reports: EGD Female Surgical History: Reports: Hysterectomy Social & Family History - Family History GI: Reports: Cirrhosis : Reports: Renal Disease/Insufficiency Endocrine/Metabolic: Reports: Diabetes, type II - Tobacco Use Smoking Status *Q: Former Smoker Used Tobacco, but Quit: No Month Tobacco Last Used: dec Second Hand Smoke Exposure: No - Caffeine Use Caffeine Use: Reports: Coffee, Tea - Recreational Drug Use Recreational Drug Use: No - Living Situation & Occupation Living situation: Reports: , with Family (with her son and his family in [place] - moved here 3 months ago after living with various other children in [place] prior to that) ED ROS GENERAL - Review of Systems Review Of Systems: See Below Constitutional: Reports: Other (Patient has advanced dementia; difficult to discern). Denies: Fever, Chills, Weakness Respiratory: Denies: Shortness of Breath, Cough Cardiovascular: Denies: Chest Pain, Palpitations GI/Abdominal: Denies: Abdominal Pain, Nausea, Vomiting Skin: Reports: No Symptoms Neurological: Reports: No Symptoms ED EXAM, GENERAL - Physical Exam Exam: See Below Exam Limited By: Altered Mental Status (Advanced Dementia) General Appearance: Alert, No Apparent Distress, Thin, Cachetic Neck: Supple Respiratory/Chest: No Respiratory Distress, Lungs Clear, Normal Breath Sounds Cardiovascular: Normal Peripheral Pulses, Regular Rate, Rhythm Peripheral Pulses: 2+: Radial (L), Radial (R) GI/Abdominal: Normal Bowel Sounds, Soft, Non-Tender Neurological: Alert Skin Exam: Warm, Dry, Intact, Normal Color, No Rash Course - Vital Signs Last Recorded V/S: Last Vital Signs Temp 35.7 C 12/10/17 11:42 Pulse 114 H 12/10/17 11:42 Resp 20 12/10/17 11:42 BP 141/84 H 12/10/17 11:42 Pulse Ox - Orders/Labs/Meds Orders: Active Orders 24 hr Category Date Time Status Lactated Ringers [Ringers, Lactated] 1,000 ml Med 12/10/17 14:03 Active IV NOW Medication Orders Lactated Ringer's (Ringers, Lactated) 1,000 mls @ 999 mls/hr IV NOW STA Stop: 12/10/17 15:03 Last Admin: 12/10/17 14:20 Dose: 999 mls/hr Labs: Laboratory Tests 12/10/17 12/10/17 12/10/17 Range/Units 12:05 12:05 12:15 WBC 25.6 H* (4.0-10.0) x10^3/uL RBC 4.56 (4.00-5.50) x10^6/uL Hgb 10.2 L (12.0-16.0) g/dL Hct 33.0 (33.0-47.0) % MCV 72.4 L D (78.0-93.0) fL MCH 22.4 L (26.0-32.0) pg MCHC 30.9 L (32.0-36.0) g/dL RDW Coeff of Bud 14.6 (10.0-15.0) % Plt Count 116 L (130-400) x10^3/uL Add Manual Diff Yes Neutrophils % (Manual) 82 H (50-80) % Band Neutrophils % 5 (0-6) % Lymphocytes % (Manual) 11 L (25-50) % Monocytes % (Manual) 2 (2-11) % Platelet Estimate Decreased L Sodium 132 L (136-145) mmol/L Potassium 4.6 (3.5-5.1) mmol/L Chloride 99 (98-107) mmol/L Carbon Dioxide 19 L (21-32) mmol/L BUN 35 H (7-18) mg/dL Creatinine 2.1 H (0.55-1.02) mg/dL Est Cr Clr Drug Dosing TNP Estimated GFR (MDRD) 23 Glucose 201 H (74-106) mg/dL Calcium 8.6 (8.5-10.1) mg/dL Magnesium 1.8 (1.8-2.4) mg/dL Urine Color Dark yellow H (YELLOW) Urine Appearance Turbid H (CLEAR) Urine pH 6.0 (5.0-8.0) Ur Specific Belle 1.025 Urine Protein >=300 H (NEGATIVE) mg/dL Urine Glucose (UA) Negative (NEGATIVE) mg/dL Urine Ketones Negative (NEGATIVE) mg/dL Urine Occult Blood Large H (NEGATIVE) Urine Nitrite Positive H (NEGATIVE) Urine Bilirubin Negative (NEGATIVE) Urine Urobilinogen 0.2 (0.2) EU/dL Ur Leukocyte Esterase Moderate H (NEGATIVE) Urine RBC 30-40 H (NOT SEEN) /HPF Urine WBC Packed (NOT SEEN) /HPF Urine WBC Clumps Moderate Ur Squamous Epith Cells Few H (NEGATIVE) /HPF Amorphous Sediment Moderate Urine Mucus Few H (NEGATIVE) /LPF Meds: Medications Generic Name Dose Route Start Last Admin Trade Name Freq PRN Reason Stop Dose Admin Lactated Ringer's 1,000 mls @ 999 mls/hr 12/10/17 14:03 12/10/17 14:20 Ringers, Lactated IV 12/10/17 15:03 999 mls/hr NOW STA Administration Departure - Departure Time of Disposition: 14:36 Disposition: Refer to Observation Condition: Fair Clinical Impression: UTI, Urinary tract infectious disease, Dehydration - Discharge Information - Problem List & Annotations (1) UTI, Urinary tract infectious disease SNOMED Code(s): 09634452 Code(s): N39.0 - URINARY TRACT INFECTION, SITE NOT SPECIFIED Status: Acute Priority: Medium Current Visit: Yes (2) Dehydration SNOMED Code(s): 75393713 Code(s): E86.0 - DEHYDRATION Status: Resolved Priority: High Current Visit: No - Problem List Review Problem List Initiated/Reviewed/Updated: Yes - My Orders Last 24 Hours: My Active Orders 12/10/17 14:03 Lactated Ringers [Ringers, Lactated] 1,000 ml IV NOW - Assessment/Plan Last 24 Hours: My Active Orders 12/10/17 14:03 Lactated Ringers [Ringers, Lactated] 1,000 ml IV NOW Plan: Patient will be admitted to observation for UTI and dehydration. Plan is for patient to be admitted to the jail after this stay. Case discussed with Case Management and PCP. Family and patient agree with admission to obs and eventually jail.
[2017-12-10] MEDS ORDERED: Sodium Chloride 0.9% 10 ML Syringe FLUSH PRN (15:22)
[2017-12-10] MEDS ORDERED: Pregabalin 25 MG Cap PO PRN (15:23)
[2017-12-10] MEDS ORDERED: Albuterol 8 GM Inhaler INH PRN (15:23)
[2017-12-10] MEDS ORDERED: traMADol 50 MG Tab PO PRN (15:23)
[2017-12-10] MEDS ORDERED: Insulin Aspart 100 Units/ML 3 ML Pen SUBCUT PRN (15:23)
[2017-12-10] MEDS ORDERED: Non-Formulary Medication 1 Each (Doxylamine Succinate [Unisom] 25 MG) PO PRN (15:23)
[2017-12-10] MEDS ORDERED: Acetaminophen 500 MG Tab PO PRN (15:23)
--- NOTE | 2017-12-10 16:01 | PCM.HP ---
H&P History of Present Illness - General Date of Service: 12/10/17 Admit Problem/Dx: Admission Diagnosis/Problem Admission Diagnosis/Problem UTI, Urinary tract infectious disease Leukocytosis Dehydration Weakness Source of Information: Patient, Family, Old Records, RN, RN Notes Reviewed History Limitations: Reports: No Limitations - History of Present Illness Initial Comments - Free Text/Narative: 77 yo female patient presents to the Emergency Room at [facility] complaining of weakness and requesting that her Cano catheter be removed. The patient has a long standing history of chronic UTI's and multiple hospital admission over the past couple of months. According to the patient's family, it has become much more difficult to take care of this patient at home. The family states they continually try and get the patient to eat and drink, but the patient's refuses. Patient appearing has been trying to dislodge and remove her Cano catheter by herself at home. The patient is taking her home medications as directed. Patient states she has generalized pain, which is chronic. No recent falls. No head injuries or trauma. Patient has not had any problems with N/V/D at home. She states she feels very weak and can not walk. During the patients stay in the ER, she stated to the nurse and this underwriter she did not feel safe at home and that she was not being allowed to eat or drink. A family conference was held with the patient, nurse, provider, daughter in law, and son. It was determined the patient could not give any specific reasons why she feels unsafe at home. The family is very reassuring she is well taken care of, which is obvious. The patient is offered several foods and drinks at home, but refuses to take them. A discussion was held with all parties and it was determined by the patient she requested placement to a halfway after this admission. A call was placed to the hospital Outside Installation Machinist and PCP and given updates. Onset of Symptoms: Reports: Unknown/Unsure Perineal Area Pain Score (Numeric/FACES): 10 - Related Data Allergies/Adverse Reactions: Allergies Allergy/AdvReac Type Severity Reaction Status Date / Time fentanyl Allergy Anaphylactic Verified 12/10/17 13:17 Shock hydromorphone AdvReac Other Verified 12/10/17 13:17 remifentanil AdvReac Respiratory Verified 12/10/17 13:17 Depression Home Medications: Home Meds Albuterol [IJD: Ventolin HFA] 2 puff INH QID PRN 05/07/17 [History] Cranberry 1 cap PO DAILY 05/07/17 [History] Fluticasone/Salmeterol [Advair 250-50 Diskus] 1 puff PO BID 05/07/17 [History] Levothyroxine 112 mcg PO MOTUTHFRSA@0700 05/07/17 [History] Acetaminophen [Pain & Fever] 1,000 mg PO Q4HR PRN 07/18/17 [History] Ergocalciferol (Vitamin D2) [Vitamin D2] 50,000 units PO Q7D 07/18/17 [History] Levothyroxine 125 mcg PO SUWE@0700 07/18/17 [History] Doxylamine Succinate [Unisom] 25 mg PO BEDTIME PRN 10/24/17 [History] Melatonin 5 mg PO BEDTIME 10/24/17 [History] Pregabalin [Lyrica] 25 mg PO BEDTIME PRN 10/24/17 [History] traMADol [Ultram] 25 mg PO Q6H PRN 10/24/17 [History] Multivit &Minerals/Ferrous Fum [Multivitamin Liquid] 15 ml PO DAILY 10/25/17 [ History] Ciprofloxacin HCl [Cipro] 500 mg PO Q12H 12/10/17 [History] Insulin Glarg,Human.Rec.Analog [LantUS Solostar] 16 units SUBCUT BEDTIME [History] Insulin Lispro [Humalog] 4 units SQ DAILY@1800 PRN 12/10/17 [History] Vancomycin 250 mg PO QID 12/10/17 [History] Past Medical History Cardiovascular History: Reports: Heart Failure Respiratory History: Reports: COPD Gastrointestinal History: Reports: GI Bleed, Other (See Below) Other Gastrointestinal History: C diff Genitourinary History: Reports: Chronic Renal Insuffiency Musculoskeletal History: Reports: Back Pain, Chronic Psychiatric History: Reports: Depression Endocrine/Metabolic History: Reports: Diabetes, Type II, Hypothyroidism Hematologic History: Reports: Anemia, Iron Deficiency Oncologic (Cancer) History: Reports: Other (See Below) Other Oncologic History: chronic CML - Infectious Disease History Infectious Disease History: Reports: None, C-Difficile - Past Surgical History HEENT Surgical History: Reports: Eye Surgery GI Surgical History: Reports: EGD Female Surgical History: Reports: Hysterectomy Social & Family History - Family History Family Medical History: Noncontributory GI: Reports: Cirrhosis : Reports: Renal Disease/Insufficiency Endocrine/Metabolic: Reports: Diabetes, type II - Tobacco Use Smoking Status *Q: Former Smoker Used Tobacco, but Quit: Yes Month Tobacco Last Used: years ago Second Hand Smoke Exposure: No - Caffeine Use Caffeine Use: Reports: Coffee - Recreational Drug Use Recreational Drug Use: No - Living Situation & Occupation Living situation: Reports: , with Family (with her son and his family in [place] - moved here 3 months ago after living with various other children in [place] prior to that) H&P Review of Systems - Review of Systems: Review Of Systems: See Below General: Reports: Weakness, Fatigue, Decreased Appetite. Denies: Fever, Chills Pulmonary: Denies: Shortness of Breath, Cough Cardiovascular: Denies: Chest Pain, Palpitations Gastrointestinal: Denies: Abdominal Pain, Nausea, Vomiting Skin: Reports: No Symptoms Neurological: Reports: Difficulty Walking, Weakness. Denies: Dizziness, Headache Exam - Exam Exam: See Below - Vital Signs Vital Signs: Last Vital Signs Temp 36.9 C 12/10/17 15:14 Pulse 118 H 12/10/17 15:14 Resp 22 H 12/10/17 15:14 BP 172/95 H 12/10/17 15:14 Pulse Ox 100 12/10/17 15:14 Weight: 48.988 kg - Exam Quality Assessment: Urinary Catheter General: Alert, Oriented, Cooperative Neck: Supple Lungs: Clear to Auscultation, Normal Respiratory Effort, Decreased Breath Sounds Cardiovascular: Regular Rate, Regular Rhythm, Normal S1, Normal S2 GI/Abdominal Exam: Soft, Non-Tender, Abnormal Bowel Sounds (Hypoactive) Peripheral Pulses: 2+: Radial (L), Radial (R) Skin: Warm, Dry, Intact Neuro Extensive - Mental Status: Alert, Disorientation to Time - Patient Data Result Diagrams: 12/10/17 12:05 12/10/17 12:05 *Q Meaningful Use (ADM) - VTE *Q VTE Criteria *Q: No risk for falls - Stroke *Q Stroke Criteria *Q: - AMI *Q AMI Criteria *Q: - Problem List (1) UTI, Urinary tract infectious disease SNOMED Code(s): 40702192 ICD Code: N39.0 - URINARY TRACT INFECTION, SITE NOT SPECIFIED Status: Acute Priority: Medium Current Visit: Yes (2) Dehydration SNOMED Code(s): 16014955 ICD Code: E86.0 - DEHYDRATION Status: Resolved Priority: High Current Visit: No (3) Generalized weakness SNOMED Code(s): 01792968 ICD Code: R53.1 - WEAKNESS Status: Acute Priority: Medium Current Visit : No Problem Details: Chronic issue due to dehydration and poor eating habits (4) Diabetes mellitus SNOMED Code(s): 39920214 ICD Code: E11.9 - TYPE 2 DIABETES MELLITUS WITHOUT COMPLICATIONS Status: Chronic Current Visit: No Problem Details: Glucoses were monitored four times daily. Continue with Lantus and Regular insulin at supper PRN for BS>250 Qualifiers: Diabetes mellitus type: type 2 Diabetes mellitus complication status: without complication Diabetes mellitus long term acute care registered nurse insulin use: with chcf use Qualified Code(s): E11.9 - Type 2 diabetes mellitus without complications ; Z79.4 - predatory animal exterminator (current) use of insulin; Z79.4 - predatory animal exterminator (current) use of insulin; Z79.4 - nursing home (current) use of insulin; Z79.4 - predatory animal exterminator ( current) use of insulin (5) CHF (congestive heart failure) SNOMED Code(s): 34472373 ICD Code: I50.9 - HEART FAILURE, UNSPECIFIED Status: Chronic Priority: Medium Current Visit: No Problem Details: This has been asymptomatic and stable. Has tolerated and fluid load in the past when patient is dehydrated Currently not on any medications for HF Qualifiers: Congestive heart failure type: diastolic Congestive heart failure chronicity: chronic Qualified Code(s): I50.32 - Chronic diastolic (congestive ) heart failure (6) Chronic kidney disease SNOMED Code(s): 768037124 ICD Code: N18.9 - CHRONIC KIDNEY DISEASE, UNSPECIFIED Status: Chronic Current Visit: No Qualifiers: Chronic kidney disease stage: stage 3 (moderate) Qualified Code(s): N18.3 - Chronic kidney disease, stage 3 (moderate) (7) COPD (chronic obstructive pulmonary disease) SNOMED Code(s): 62732185 ICD Code: J44.9 - CHRONIC OBSTRUCTIVE PULMONARY DISEASE, UNSPECIFIED Status : Chronic Current Visit: No Problem Details: -Also asymptomatic and stable. -Continue PRN Albuterol inhaler and Advair. Qualifiers: COPD type: unspecified COPD Qualified Code(s): J44.9 - Chronic obstructive pulmonary disease, unspecified (8) Hypothyroidism SNOMED Code(s): 05536195 ICD Code: E03.9 - HYPOTHYROIDISM, UNSPECIFIED Status: Chronic Current Visit: No Problem Details: Levothyroxine continued, no changes with dosing Qualifiers: Hypothyroidism type: acquired Qualified Code(s): E03.9 - Hypothyroidism, unspecified Problem List Initiated/Reviewed/Updated: Yes Orders Last 24hrs: Active Orders 24 hr Category Date Time Status Patient Status [ADT] Routine ADT 12/10/17 15:14 Active Blood Glucose Check, Bedside [RC] 07,11,17,20 Care 12/10/17 15:14 Active Intake and Output [RC] , Care 12/10/17 15:16 Active Oxygen Therapy [RC] PRN Care 12/10/17 15:14 Active Up With Assistance [RC] , Care 12/10/17 15:14 Active Urinary Catheter Assessment [RC] , Care 12/10/17 15:14 Active VTE/DVT Education [RC] PER UNIT ROUTINE Care 12/10/17 15:14 Active Vital Signs [RC] 06,10,14,18,22,02 Care 12/10/17 15:14 Active Consult to Case Management [CONS] Routine Cons 12/10/17 15:14 Active OT Evaluation and Treatment [CONS] Routine Cons 12/10/17 15:14 Active PT Evaluation and Treatment [CONS] Routine Cons 12/10/17 15:14 Active [place] [employer] Diet [DIET] Diet 12/10/17 Breakfast Active BASIC METABOLIC PANEL,BMP [CHEM] Routine Lab 12/11/17 05:11 Ordered CBC WITH AUTO DIFF [HEME] Routine Lab 12/11/17 05:11 Ordered Acetaminophen [Pain & Fever] Med 12/10/17 15:23 Ordered 1,000 mg PO Q4HR PRN Albuterol [IJD: Ventolin HFA] Med 12/10/17 15:23 Ordered 2 puff INH QID PRN Ciprofloxacin HCl [Cipro] Med 12/10/17 15:30 Ordered 500 mg PO Q12H Cranberry [Cranberry] Med 12/11/17 08:00 Ordered 1 cap PO DAILY Doxylamine Succinate [Unisom] Med 12/10/17 15:23 Ordered 25 mg PO BEDTIME PRN Ergocalciferol (Vitamin D2) [Vitamin D2] Med 12/11/17 08:00 Ordered 50,000 units PO Q7D Fluticasone/Salmeterol [Advair 250-50 Diskus] Med 12/10/17 20:00 Ordered 1 puff PO BID Insulin Glarg,Human.Rec.Analog Med 12/10/17 20:00 Ordered 16 units SUBCUT BEDTIME Insulin Lispro [Humalog] Med 12/10/17 15:23 Ordered 4 units SQ DAILY@1800 PRN Levothyroxine [Levothyroxine] Med 12/12/17 07:00 Ordered 112 mcg PO MOTUTHFRSA@0700 Levothyroxine [Levothyroxine] Med 12/11/17 07:00 Ordered 125 mcg PO SUWE@0700 Melatonin [Melatonin] Med 12/10/17 20:00 Ordered 5 mg PO BEDTIME Multivit &Minerals/Ferrous Fum [Multivitamin Liquid] Med 12/11/17 08:00 Ordered 15 ml PO DAILY Pregabalin [Lyrica] Med 12/10/17 15:23 Ordered 25 mg PO BEDTIME PRN Sodium Chloride 0.9% [Saline Flush] Med 12/10/17 15:22 Active 10 ml FLUSH ASDIRECTED PRN Vancomycin [Vancomycin] Med 12/10/17 16:00 Ordered 250 mg PO QID traMADol [Ultram] Med 12/10/17 15:23 Ordered 25 mg PO Q6H PRN Convert IV to Saline Lock [OM.PC] Routine Oth 12/10/17 15:22 Ordered Resuscitation Status Routine Resus Stat 12/10/17 15:32 Ordered Medication Orders Albuterol (Ventolin Hfa) 0 gm INH QID PRN PRN Reason: Wheezing Ergocalciferol (Vitamin D2) 50,000 units PO Q7D ANITHA Non-Formulary Medication (Acetaminophen [Pain & Fever]) 1,000 mg PO Q4HR PRN PRN Reason: Pain (moderate 4-6) Non-Formulary Medication (Ciprofloxacin Hcl [Cipro]) 500 mg PO Q12H ANITHA Non-Formulary Medication (Cranberry [Cranberry]) 1 cap PO DAILY ANITHA Non-Formulary Medication (Doxylamine Succinate [Unisom]) 25 mg PO BEDTIME PRN PRN Reason: Sleep Non-Formulary Medication (Fluticasone/Salmeterol [Advair 250-50 Diskus]) 1 puff PO BID ANITHA Non-Formulary Medication (Insulin Glarg,Human.Rec.Analog) 16 units SUBCUT BEDTIME ANITHA Non-Formulary Medication (Insulin Lispro [Humalog]) 4 units SQ DAILY@1800 PRN PRN Reason: Blood Glucose Non-Formulary Medication (Levothyroxine [Levothyroxine]) 112 mcg PO MOTUTHFRSA@ 0700 ANITHA Non-Formulary Medication (Levothyroxine [Levothyroxine]) 125 mcg PO SUWE@0700 ANITHA Non-Formulary Medication (Melatonin [Melatonin]) 5 mg PO BEDTIME ANITHA Non-Formulary Medication (Multivit &Minerals/Ferrous Fum [Multivitamin Liquid]) 15 ml PO DAILY ANITHA Non-Formulary Medication (Pregabalin [Lyrica]) 25 mg PO BEDTIME PRN PRN Reason: Pain Non-Formulary Medication (Tramadol [Ultram]) 25 mg PO Q6H PRN PRN Reason: Pain (severe 7-10) Non-Formulary Medication (Vancomycin [Vancomycin]) 250 mg PO QID ANITHA Sodium Chloride (Saline Flush) 10 ml FLUSH ASDIRECTED PRN PRN Reason: Keep Vein Open Assessment/Plan Comment:: 77-year-old female patient with a past medical history of diabetes type 2, congestive heart failure, hypothyroidism, COPD, chronic kidney disease will be admitted to the observation unit at [facility] with the diagnosis of urinary tract infection, dehydration, leukocytosis, and weakness. We will ask the disability case manager to see this patient for discharge planning to the halfway. While the patient was in the emergency room a family conference was held regarding patient's disposition. The patient did verbally agreed to be sent to the halfway and had also requested placement. The patient was given a 500 mL bolus of lactated Ringer's while in the emergency room, we will cap her IV at this time. We will continue the patient on her current dosing of Cipro and vancomycin for chronic UTIs and a history of C. difficile. We will consult physical and occupational therapy to assess the patient's weakness and ADLs. We will continue the patient's current medications from home without any changes. We will recheck a CBC and BMP in the morning. The patient wishes to be a full code. DVT prophylaxis will be early ambulation. The patient does not wish to be transferred to a higher level of care should the need arise. I am hoping that the patient will not need longer than 48 hours on observation. It was discussed with the patient and family that if she will need a longer stay, she will need to be switched to self a swing bed. The patient verbalizes understanding. Cano catheter will stay in place until patient is seen by Urology at her next appointment. If the catheter becomes plugged or fails to work, nursing may replace and change out as needed.
[2017-12-10] MEDS: Vancomycin 125 MG/2.5 ML Oral Solution 2.5 ML UD Cup PO SCH ×2 (16:28→20:40)
[2017-12-10] MEDS: Ciprofloxacin 500 MG Tab PO SCH (20:38)
[2017-12-10] MEDS: Formoterol/Mometasone 200-5 MCG 8.8 GM Inhaler IH SCH (20:39)
[2017-12-10] MEDS: Insulin Detemir 100 Units/ML 3 ML Pen SUBCUT SCH (20:39)
[2017-12-10] MEDS: Melatonin 3 MG Tab PO SCH (20:39)
[2017-12-11] MEDS: Formoterol/Mometasone 200-5 MCG 8.8 GM Inhaler IH SCH ×2 (06:11→19:35)
[2017-12-11] MEDS ORDERED: Levothyroxine 125 MCG Tab PO SCH (07:00)
[2017-12-11] MEDS ORDERED: MULTIVIT PO SCH (08:00)
[2017-12-11] MEDS ORDERED: MINERALS PO SCH (08:00)
[2017-12-11] MEDS ORDERED: Ergocalciferol (Vitamin D2) 50,000 Unit Cap PO SCH (08:00)
[2017-12-11] MEDS ORDERED: [UNRECOGNIZED DRUG - OTHER] PO SCH (08:00)
[2017-12-11] MEDS ORDERED: FERROUS FUM PO SCH (08:00)
[2017-12-11] MEDS: Vancomycin 125 MG/2.5 ML Oral Solution 2.5 ML UD Cup PO SCH ×4 (08:27→19:39)
[2017-12-11] MEDS: Cranberry 500 MG Cap PO SCH (08:27)
[2017-12-11] MEDS: Ciprofloxacin 500 MG Tab PO SCH (08:27)
[2017-12-11] MEDS: Multivitamins with Iron/Calcium/Folic Acid/Minerals Tab PO SCH (08:27)
[2017-12-11] MEDS ORDERED: Lactated Ringers 1,000 ML IV SCH (08:30)
--- NOTE | 2017-12-11 10:27 | PCM.PN ---
- General Info Date of Service: 12/11/17 Subjective Update: Patient is feeling fine this morning. She states she did have some joint pain earlier but that is now resolved. She has been trying to drink plenty of fluids. She continues to state that she does not want to return home after this hospitalization. She states that her family members were being "mean" to her. She denies any physical abuse or financial issues. She just tells me that they said some mean things to her a few days ago and does not want them to visit her here or in the skilled nursing. She does not clarify what exactly was said. Per the family, the patient has become increasingly difficult to care for at home. She has become more irritable and "mean" and has been refusing to eat or drink anything. She has also apparently been intentionally pulling on her catheter trying to dislodge this. - Review of Systems General: Reports: No Symptoms HEENT: Reports: No Symptoms Pulmonary: Reports: No Symptoms Cardiovascular: Reports: No Symptoms Gastrointestinal: Reports: No Symptoms Genitourinary: Reports: No Symptoms Musculoskeletal: Reports: No Symptoms Skin: Reports: No Symptoms - Patient Data Vitals - Most Recent: Last Vital Signs Temp 36.2 C 12/11/17 10:00 Pulse 68 12/11/17 10:00 Resp 16 12/11/17 10:00 BP 122/72 12/11/17 10:00 Pulse Ox 99 12/11/17 10:00 Weight - Most Recent: 48.988 kg I&O - Last 24 Hours: Intake & Output 12/10/17 12/11/17 12/11/17 22:59 06:59 14:59 Intake Total 500 350 300 Output Total 100 800 Balance 400 -450 300 Lab Results Last 24 Hours: Laboratory Results - last 24 hr 12/10/17 12/10/17 12/11/17 Range/Units 16:43 20:49 06:10 WBC (4.0-10.0) x10^3/uL RBC (4.00-5.50) x10^6/uL Hgb (12.0-16.0) g/dL Hct (33.0-47.0) % MCV (78.0-93.0) fL MCH (26.0-32.0) pg MCHC (32.0-36.0) g/dL RDW Coeff of Bud (10.0-15.0) % Plt Count (130-400) x10^3/uL Add Manual Diff Neutrophils % (Manual) (50-80) % Band Neutrophils % (0-6) % Lymphocytes % (Manual) (25-50) % Monocytes % (Manual) (2-11) % Eosinophils % (Manual) (0-4) % Platelet Estimate Sodium (136-145) mmol/L Potassium (3.5-5.1) mmol/L Chloride (98-107) mmol/L Carbon Dioxide (21-32) mmol/L BUN (7-18) mg/dL Creatinine (0.55-1.02) mg/dL Est Cr Clr Drug Dosing mL/min Estimated GFR (MDRD) Glucose (74-106) mg/dL POC Glucose 242 H 383 H 209 H (74-106) mg/dL Calcium (8.5-10.1) mg/dL 12/11/17 12/11/17 Range/Units 06:20 06:20 WBC 13.4 H (4.0-10.0) x10^3/uL RBC 3.77 L (4.00-5.50) x10^6/uL Hgb 8.4 L D (12.0-16.0) g/dL Hct 27.4 L (33.0-47.0) % MCV 72.7 L (78.0-93.0) fL MCH 22.3 L (26.0-32.0) pg MCHC 30.7 L (32.0-36.0) g/dL RDW Coeff of Bud 14.4 (10.0-15.0) % Plt Count 90 L (130-400) x10^3/uL Add Manual Diff Yes Neutrophils % (Manual) 65 (50-80) % Band Neutrophils % 12 H (0-6) % Lymphocytes % (Manual) 15 L (25-50) % Monocytes % (Manual) 4 (2-11) % Eosinophils % (Manual) 4 (0-4) % Platelet Estimate Decreased L Sodium 134 L (136-145) mmol/L Potassium 4.4 (3.5-5.1) mmol/L Chloride 102 (98-107) mmol/L Carbon Dioxide 22 (21-32) mmol/L BUN 32 H (7-18) mg/dL Creatinine 1.9 H (0.55-1.02) mg/dL Est Cr Clr Drug Dosing 17.24 mL/min Estimated GFR (MDRD) 26 Glucose 205 H (74-106) mg/dL POC Glucose (74-106) mg/dL Calcium 8.3 L (8.5-10.1) mg/dL Med Orders - Current: Current Medications Acetaminophen (Tylenol Extra Strength) 1,000 mg PO Q4HR PRN PRN Reason: Pain (moderate 4-6) Last Admin: 12/10/17 20:43 Dose: 1,000 mg Albuterol (Ventolin Hfa) 0 gm INH QID PRN PRN Reason: Wheezing Ciprofloxacin (Ciprofloxacin Hcl) 500 mg PO Q12H [facility] Last Admin: 12/11/17 08:27 Dose: 500 mg Cranberry (Cranberry) 500 mg PO DAILY [facility] Last Admin: 12/11/17 08:27 Dose: 500 mg Ergocalciferol (Vitamin D2) 50,000 units PO Q7D [facility] Last Admin: 12/11/17 08:30 Dose: 50,000 units Lactated Ringer's (Ringers, Lactated) 1,000 mls @ 100 mls/hr IV ASDIRECTED [facility] Stop: 12/11/17 18:31 Last Admin: 12/11/17 08:31 Dose: 100 mls/hr Insulin Aspart (Novolog) 4 unit SUBCUT DAILY@1800 PRN PRN Reason: Blood Glucose Insulin Detemir (Levemir) 16 unit SUBCUT BEDTIME [facility] Last Admin: 12/10/17 20:39 Dose: 16 units Levothyroxine Sodium (Levothyroxine) 112 mcg PO MOTUTHFRSA@0700 [facility] Levothyroxine Sodium (Levothyroxine) 125 mcg PO SUWE@0700 [facility] Last Admin: 12/11/17 06:09 Dose: 125 mcg Melatonin (Melatonin) 4.5 mg PO BEDTIME [facility] Last Admin: 12/10/17 20:39 Dose: 4.5 mg Mometasone Furoate/Formoterol Fumar (Dulera 200-5 Mcg) 2 puff IH BIDRT [facility] Last Admin: 12/11/17 06:11 Dose: 2 puff Multivitamins/Minerals (Thera M Plus) 1 tab PO DAILY [facility] Last Admin: 12/11/17 08:27 Dose: 1 tab Pregabalin (Lyrica) 25 mg PO BEDTIME [facility] Sodium Chloride (Saline Flush) 10 ml FLUSH ASDIRECTED PRN PRN Reason: Keep Vein Open Tramadol HCl (Ultram) 25 mg PO Q6H PRN PRN Reason: Pain (severe 7-10) Vancomycin HCl (Vancocin 125 Mg/2.5 Ml Soln) 250 mg PO QID [facility] Last Admin: 12/11/17 08:27 Dose: 250 mg Discontinued Medications Lactated Ringer's (Ringers, Lactated) 1,000 mls @ 999 mls/hr IV NOW STA Stop: 12/10/17 15:03 Last Admin: 12/10/17 14:20 Dose: 999 mls/hr Non-Formulary Medication (Doxylamine Succinate [Unisom]) 25 mg PO BEDTIME PRN PRN Reason: Sleep Non-Formulary Medication (Multivit &Minerals/Ferrous Fum [Multivitamin Liquid]) 15 ml PO DAILY [facility] Pregabalin (Lyrica) 25 mg PO BEDTIME PRN PRN Reason: Pain - Exam General: Alert, Cooperative, No Acute Distress HEENT: Mucous Membr. Moist/Christoval Neck: Supple, Trachea Midline, No Thyromegaly. No: Lymphadenopathy Lungs: Clear to Auscultation, Normal Respiratory Effort Cardiovascular: Regular Rate, Regular Rhythm, No Murmurs GI/Abdominal Exam: Normal Bowel Sounds, Soft, Non-Tender, No Organomegaly, No Distention, No Mass Extremities: Non-Tender, No Pedal Edema, Normal Capillary Refill Peripheral Pulses: 2+: Radial (L), Radial (R), Posterior Tibial (L), Posterior Tibial (R) Skin: Warm, Dry, Intact - Problem List & Annotations (1) Dehydration SNOMED Code(s): 87474096 Code(s): E86.0 - DEHYDRATION Status: Acute Current Visit: Yes Annotation/Comment:: - Patient has had ongoing issues with keeping up her hydration status. Family has been well aware and attempted to push fluids; patient and family stories differ but the issue is more patient's unwillingness to drink fluids given this is her pattern even in the hospital. 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 She just got the 500 cc in the ER and nothing further overnight. Will do another liter at 100 cc/hr throughout the day today. Also ad stephy PO's. - She is medically stable to discharge to the skilled nursing whenever a bed is available as hopefully she will be more inclined to listen to staff there to push fluids than she would be with her family at this point. - Recheck labs in the am. (2) Recurrent UTI SNOMED Code(s): 933769416 Code(s): N39.0 - URINARY TRACT INFECTION, SITE NOT SPECIFIED Status: Chronic Current Visit: Yes Annotation/Comment:: - Cipro is continued as per ID recommendations at her last hospitalization. - Due to her poor renal function, we will adjust the dose today to 500 mg q24 hours. Option would be 250 mg every 18 hours but this is not really feasible at the skilled nursing. Therefore, will do 500 q24 instead. - She will follow-up with ID next week. (3) History of Clostridium difficile infection SNOMED Code(s): 770774433 Code(s): Z86.19 - PERSONAL HISTORY OF OTHER INFECTIOUS AND PARASITIC DISEASES Status: Chronic Current Visit: Yes Annotation/Comment:: - Her vancomycin will be continued as long as she is on the ciprofloxacin also per ID recommendations. (4) Acute kidney failure SNOMED Code(s): 13522743 Code(s): N17.9 - ACUTE KIDNEY FAILURE, UNSPECIFIED Status: Acute Priority : High Current Visit: No Qualifiers: Acute renal failure type: unspecified Qualified Code(s): N17.9 - Acute kidney failure, unspecified Annotation/Comment:: - Creatinine up to 2.1 on admission. - Likely prerenal secondary to poor PO intake of fluids. - Improved to 1.9 today. Will do another liter of fluids and then push PO's. - This will be a recurrent issue if she does not improve her fluid intake. (5) Chronic kidney disease SNOMED Code(s): 370761679 Code(s): N18.9 - CHRONIC KIDNEY DISEASE, UNSPECIFIED Status: Chronic Current Visit: No Qualifiers: Chronic kidney disease stage: stage 3 (moderate) Qualified Code(s): N18.3 - Chronic kidney disease, stage 3 (moderate) Annotation/Comment:: - See above. - Baseline creatinine is 1.4-1.6. - She has had ongoing issues with not keeping up with PO fluids and needs to be better about this; not really reasonable to keep admitting her for fluids because she is refusing to drink liquids. (6) CHF (congestive heart failure) SNOMED Code(s): 35986316 Code(s): I50.9 - HEART FAILURE, UNSPECIFIED Status: Chronic Priority: Medium Current Visit: No Qualifiers: Congestive heart failure type: diastolic Congestive heart failure chronicity: chronic Qualified Code(s): I50.32 - Chronic diastolic (congestive ) heart failure Annotation/Comment:: - Asymptomatic and stable. Has tolerated the fluid loads well in the past. Will monitor this now as well. - Currently not on any medications for this. (7) COPD (chronic obstructive pulmonary disease) SNOMED Code(s): 81280637 Code(s): J44.9 - CHRONIC OBSTRUCTIVE PULMONARY DISEASE, UNSPECIFIED Status : Chronic Current Visit: No Qualifiers: COPD type: unspecified COPD Qualified Code(s): J44.9 - Chronic obstructive pulmonary disease, unspecified Annotation/Comment:: -Asymptomatic and stable. -Continue PRN Albuterol inhaler and Advair. (8) Chronic low back pain SNOMED Code(s): 666314815 Code(s): M54.5 - LOW BACK PAIN; G89.29 - OTHER CHRONIC PAIN Status: Chronic Current Visit: No Qualifiers: Back pain laterality: unspecified Sciatica presence: unspecified whether sciatica present Qualified Code(s): M54.5 - Low back pain; G89.29 - Other chronic pain Annotation/Comment:: - Tylenol and tramadol continued. (9) Diabetes mellitus SNOMED Code(s): 30471348 Code(s): E11.9 - TYPE 2 DIABETES MELLITUS WITHOUT COMPLICATIONS Status: Chronic Current Visit: No Qualifiers: Diabetes mellitus type: type 2 Diabetes mellitus complication status: without complication Diabetes mellitus intermission coordinator insulin use: with intermission coordinator use Qualified Code(s): E11.9 - Type 2 diabetes mellitus without complications ; Z79.4 - keno terminal operator (current) use of insulin; Z79.4 - keno terminal operator (current) use of insulin; Z79.4 - keno terminal operator (current) use of insulin; Z79.4 - keno terminal operator ( current) use of insulin Annotation/Comment:: - QID glucoses. - Continue levemir. - Will hold scheduled novolog and do sliding scale instead. (10) Hypothyroidism SNOMED Code(s): 98211817 Code(s): E03.9 - HYPOTHYROIDISM, UNSPECIFIED Status: Chronic Current Visit: No Qualifiers: Hypothyroidism type: acquired Qualified Code(s): E03.9 - Hypothyroidism, unspecified Annotation/Comment:: - TSH will be done in light of recent behavioral changes. - Otherwise, continue current levothyroxine dosing unless otherwise indicated. (11) Cognitive impairment SNOMED Code(s): 920670698 Code(s): R41.89 - OTH SYMPTOMS AND SIGNS W COGNITIVE FUNCTIONS AND AWARENESS Status: Chronic Current Visit: Yes Annotation/Comment:: - Patient will be transitioning from the home to the care center. Issues with family relationships have occurred in the past; she did return home previously once things calmed down but we will see how it goes this time. - Problem List Review Problem List Initiated/Reviewed/Updated: Yes - My Orders Last 24 Hours: My Active Orders 12/11/17 08:00 Multivitamins w-Iron/Ca/FA/Min [Thera M Plus] 1 tab PO DAILY 12/11/17 08:30 Lactated Ringers [Ringers, Lactated] 1,000 ml IV ASDIRECTED 12/11/17 08:39 CULTURE MRSA SURVEY [RM] Routine 12/11/17 20:00 Pregabalin [Lyrica] 25 mg PO BEDTIME 12/12/17 05:11 BASIC METABOLIC PANEL,BMP [CHEM] Routine CBC WITH AUTO DIFF [HEME] Routine - Assessment Assessment:: 77 yo female admitted under observation for IV fluids related to dehydration and GIACOMO. Stable this am. See details above. - Plan Plan:: See details under problems above. She will get gentle IV fluids today. Home medications continued; cipro dose adjusted based on renal function. She is on observation status as she does not really meet criteria for acute. She is ready to discharge to the skilled nursing once a bed is available. If she is ready to discharge before that, she will have to transition to self pay swing bed. Case management is involved. Code status is full. She is not on any VTE prophylaxis in light of her hemoglobin drop and the fact she is at her baseline functional status.
[2017-12-11] MEDS: Acetaminophen 500 MG Tab PO PRN ×2 (13:39→21:08)
[2017-12-11] MEDS ORDERED: Insulin Aspart 100 Units/ML 3 ML Pen SUBCUT ONE (16:57)
[2017-12-11] MEDS: Insulin Aspart 100 Units/ML 3 ML Pen SUBCUT SCH (17:22)
[2017-12-11] MEDS: Insulin Detemir 100 Units/ML 3 ML Pen SUBCUT SCH (19:36)
[2017-12-11] MEDS: Melatonin 3 MG Tab PO SCH (19:38)
[2017-12-11] MEDS ORDERED: Pregabalin 25 MG Cap PO SCH (20:00)
[2017-12-12] MEDS: Formoterol/Mometasone 200-5 MCG 8.8 GM Inhaler IH SCH (06:07)
[2017-12-12 06:13] VITALS: BP 145/47
[2017-12-12] MEDS: Acetaminophen 500 MG Tab PO PRN (06:54)
[2017-12-12] MEDS ORDERED: Levothyroxine 112 MCG Tab PO SCH (07:00)
[2017-12-12] MEDS: Cranberry 500 MG Cap PO SCH (07:52)
[2017-12-12] MEDS: Multivitamins with Iron/Calcium/Folic Acid/Minerals Tab PO SCH (07:52)
[2017-12-12] MEDS: Insulin Aspart 100 Units/ML 3 ML Pen SUBCUT SCH (07:53)
[2017-12-12] MEDS: Vancomycin 125 MG/2.5 ML Oral Solution 2.5 ML UD Cup PO SCH (07:53)
[2017-12-12] MEDS ORDERED: Ciprofloxacin 500 MG Tab PO SCH (08:00)
--- NOTE | 2017-12-12 08:26 | PCM.DCSUM1 ---
Discharge Summary - Hospital Course Brief History: Mrs. Louie is a 77 yo female who was admitted observation for treatment with IV fluids in the setting of dehydration and acute kidney injury. - Discharge Data Discharge Date: 12/12/17 Discharge Disposition: DC/Tfer to SNF 03 Condition: Good - Discharge Diagnosis/Problem(s) (1) Dehydration SNOMED Code(s): 91683711 ICD Code: E86.0 - DEHYDRATION Status: Acute Current Visit: Yes Problem Details: Patient has had ongoing issues with keeping up her hydration status. Family has been well aware and attempted to push fluids; patient and family stories differ but the issue is likely more patient's unwillingness to drink fluids given this is her pattern even in the hospital. She got some IV fluids yesteday but otherwise has been doing well with PO fluids as well. Her creatinine has not improved much, which would suggest that this may be her new baseline. She will need to continue to push fluids at the care center to avoid further progression of her renal disease. (2) Recurrent UTI SNOMED Code(s): 069271914 ICD Code: N39.0 - URINARY TRACT INFECTION, SITE NOT SPECIFIED Status: Chronic Current Visit: Yes Problem Details: Ciprofloxacin is continued as per ID recommendations at her last hospitalization. No evidence of a new UTI. Due to her poor renal function, her ciprofloxacin dose was adjusted to 500 mg q24 hours. She will follow-up with ID next week. (3) History of Clostridium difficile infection SNOMED Code(s): 702325503 ICD Code: Z86.19 - PERSONAL HISTORY OF OTHER INFECTIOUS AND PARASITIC DISEASES Status: Chronic Current Visit: Yes Problem Details: Her vancomycin will be continued as long as she is on the ciprofloxacin also per ID recommendations. (4) Acute kidney failure SNOMED Code(s): 71455743 ICD Code: N17.9 - ACUTE KIDNEY FAILURE, UNSPECIFIED Status: Acute Priority: High Current Visit: No Problem Details: Creatinine up to 2.1 on admission. [place] to be acute on chronic kidney failure; however, did not improve much with IV fluids. Likely the recurrent issues with dehydration have caught up with her and 1.9 may be her new baseline. Time will tell on this and we will continue to monitor her intake and renal function closely. Qualifiers: Acute renal failure type: unspecified Qualified Code(s): N17.9 - Acute kidney failure, unspecified (5) Chronic kidney disease SNOMED Code(s): 371536625 ICD Code: N18.9 - CHRONIC KIDNEY DISEASE, UNSPECIFIED Status: Chronic Current Visit: No Problem Details: See above. Wonder if this is now her new baseline rather than an acute on chronic issue. She will need ongoing follow up with nephrology. Qualifiers: Chronic kidney disease stage: stage 3 (moderate) Qualified Code(s): N18.3 - Chronic kidney disease, stage 3 (moderate) (6) CHF (congestive heart failure) SNOMED Code(s): 02457988 ICD Code: I50.9 - HEART FAILURE, UNSPECIFIED Status: Chronic Priority: Medium Current Visit: No Problem Details: Asymptomatic and stable. Has tolerated the fluid load well. Currently not on any medications for this. Qualifiers: Congestive heart failure type: diastolic Congestive heart failure chronicity: chronic Qualified Code(s): I50.32 - Chronic diastolic (congestive ) heart failure (7) COPD (chronic obstructive pulmonary disease) SNOMED Code(s): 78458886 ICD Code: J44.9 - CHRONIC OBSTRUCTIVE PULMONARY DISEASE, UNSPECIFIED Status : Chronic Current Visit: No Problem Details: Asymptomatic and stable. Continue PRN Albuterol inhaler and Advair. Qualifiers: COPD type: unspecified COPD Qualified Code(s): J44.9 - Chronic obstructive pulmonary disease, unspecified (8) Chronic low back pain SNOMED Code(s): 539192731 ICD Code: M54.5 - LOW BACK PAIN; G89.29 - OTHER CHRONIC PAIN Status: Chronic Current Visit: No Problem Details: Tylenol and tramadol continued. Qualifiers: Back pain laterality: unspecified Sciatica presence: unspecified whether sciatica present Qualified Code(s): M54.5 - Low back pain; G89.29 - Other chronic pain (9) Diabetes mellitus SNOMED Code(s): 90315304 ICD Code: E11.9 - TYPE 2 DIABETES MELLITUS WITHOUT COMPLICATIONS Status: Chronic Current Visit: No Problem Details: Glucoses have been elevated as is her usual in the hospital. Last time also had significant issues in the care center. Therefore, will continue her lantus but also had 4 units of novolog with meals as well. 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 Continue current levothyroxine dosing unless otherwise indicated. Qualifiers: Hypothyroidism type: acquired Qualified Code(s): E03.9 - Hypothyroidism, unspecified (11) Cognitive impairment SNOMED Code(s): 207810359 ICD Code: R41.89 - OTH SYMPTOMS AND SIGNS W COGNITIVE FUNCTIONS AND AWARENESS Status: Chronic Current Visit: Yes Problem Details: Patient will be transitioning from the home to the care center. Issues with family relationships have occurred in the past; she did return home previously once things calmed down but we will see how it goes this time. - Patient Summary/Data Operative Procedure(s) Performed: none Complications: none Consults: Consultations 12/10/17 15:14 Consult to Case Management [CONS] Routine OT Evaluation and Treatment [CONS] Routine Labs Pending at D/C: none Recommended Follow-up Testing/Procedures: none Planned Operative Procedure(s) after DC: none Hospital Course: See details under above. Her stay was uncomplicated. She will be admitted to the care center today. - Patient Instructions Diet: Diabetic Diet Activity: As Tolerated Driving: Do Not Drive Showering/Bathing: May Shower - Discharge Plan Prescriptions/Med Rec: Insulin Aspart [NovoLOG] 4 unit SUBCUT TIDMEALS #3 pen Home Medications: Home Meds Albuterol [IJD: Ventolin HFA] 2 puff INH QID PRN 05/07/17 [History] Cranberry 1 cap PO DAILY 05/07/17 [History] Fluticasone/Salmeterol [Advair 250-50 Diskus] 1 puff PO BID 05/07/17 [History] Levothyroxine 112 mcg PO MOTUTHFRSA@0700 05/07/17 [History] Acetaminophen [Pain & Fever] 1,000 mg PO Q4HR PRN 07/18/17 [History] Ergocalciferol (Vitamin D2) [Vitamin D2] 50,000 units PO Q7D 07/18/17 [History] Levothyroxine 125 mcg PO SUWE@0700 07/18/17 [History] Melatonin 5 mg PO BEDTIME 10/24/17 [History] Pregabalin [Lyrica] 25 mg PO BEDTIME PRN 10/24/17 [History] traMADol [Ultram] 25 mg PO Q6H PRN 10/24/17 [History] Multivit &Minerals/Ferrous Fum [Multivitamin Liquid] 15 ml PO DAILY 10/25/17 [ History] Insulin Glarg,Human.Rec.Analog [LantUS Solostar] 16 units SUBCUT BEDTIME [History] Vancomycin 250 mg PO QID 12/10/17 [History] Ciprofloxacin [IJD: Ciprofloxacin HCl] 500 mg PO DAILY tablet 12/12/17 [Rx] Insulin Aspart [NovoLOG] 4 unit SUBCUT TIDMEALS #3 pen 12/12/17 [Rx] - Discharge Summary/Plan Comment DC Time >30 min.: No - General Info Date of Service: 12/12/17 Subjective Update: Doing well this morning. Prepared for discharge to the care center today. Remains tearful about this but does not want to return home. - Review of Systems General: Reports: No Symptoms HEENT: Reports: No Symptoms Pulmonary: Reports: No Symptoms Cardiovascular: Reports: No Symptoms Gastrointestinal: Reports: No Symptoms Genitourinary: Reports: No Symptoms Musculoskeletal: Reports: No Symptoms Skin: Reports: No Symptoms - Patient Data Vitals - Most Recent: Last Vital Signs Temp 36.9 C 12/12/17 06:00 Pulse 92 12/12/17 06:00 Resp 16 12/12/17 06:00 BP 145/47 H 12/12/17 06:00 Pulse Ox 95 12/12/17 06:00 Weight - Most Recent: 48.988 kg I&O - Last 24 hours: Intake & Output 12/11/17 12/12/17 12/12/17 22:59 06:59 14:59 Intake Total 884 Output Total 600 1000 Balance 284 -1000 Lab Results - Last 24 hrs: Laboratory Results - last 24 hr 12/11/17 12/11/17 12/12/17 Range/Units 16:52 19:38 06:10 WBC (4.0-10.0) x10^3/uL RBC (4.00-5.50) x10^6/uL Hgb (12.0-16.0) g/dL Hct (33.0-47.0) % MCV (78.0-93.0) fL MCH (26.0-32.0) pg MCHC (32.0-36.0) g/dL RDW Coeff of Bud (10.0-15.0) % Plt Count (130-400) x10^3/uL Add Manual Diff Neutrophils % (Manual) (50-80) % Band Neutrophils % (0-6) % Lymphocytes % (Manual) (25-50) % Monocytes % (Manual) (2-11) % Basophils % (Manual) (0-1) % Nucleated RBCs (0-5) /100WBC Platelet Estimate Sodium (136-145) mmol/L Potassium (3.5-5.1) mmol/L Chloride (98-107) mmol/L Carbon Dioxide (21-32) mmol/L BUN (7-18) mg/dL Creatinine (0.55-1.02) mg/dL Est Cr Clr Drug Dosing mL/min Estimated GFR (MDRD) Glucose (74-106) mg/dL POC Glucose 448 H* 383 H 301 H (74-106) mg/dL Calcium (8.5-10.1) mg/dL TSH, Ultra Sensitive (0.358-3.74) uIU/mL 12/12/17 12/12/17 Range/Units 06:58 06:58 WBC 25.6 H* (4.0-10.0) x10^3/uL RBC 4.33 (4.00-5.50) x10^6/uL Hgb 9.7 L (12.0-16.0) g/dL Hct 31.4 L (33.0-47.0) % MCV 72.5 L (78.0-93.0) fL MCH 22.4 L (26.0-32.0) pg MCHC 30.9 L (32.0-36.0) g/dL RDW Coeff of Bud 14.6 (10.0-15.0) % Plt Count 127 L (130-400) x10^3/uL Add Manual Diff Yes Neutrophils % (Manual) 46 L (50-80) % Band Neutrophils % 1 (0-6) % Lymphocytes % (Manual) 32 (25-50) % Monocytes % (Manual) 20 H (2-11) % Basophils % (Manual) 1 (0-1) % Nucleated RBCs 1 (0-5) /100WBC Platelet Estimate Decreased L Sodium 135 L (136-145) mmol/L Potassium 4.5 (3.5-5.1) mmol/L Chloride 101 (98-107) mmol/L Carbon Dioxide 20 L (21-32) mmol/L BUN 30 H (7-18) mg/dL Creatinine 1.9 H (0.55-1.02) mg/dL Est Cr Clr Drug Dosing 17.24 mL/min Estimated GFR (MDRD) 26 Glucose 286 H (74-106) mg/dL POC Glucose (74-106) mg/dL Calcium 8.4 L (8.5-10.1) mg/dL TSH, Ultra Sensitive 2.985 (0.358-3.74) uIU/mL Med Orders - Current: Current Medications Acetaminophen (Tylenol Extra Strength) 1,000 mg PO TID PRN PRN Reason: Pain (moderate 4-6) Last Admin: 12/12/17 06:54 Dose: 1,000 mg Albuterol (Ventolin Hfa) 0 gm INH QID PRN PRN Reason: Wheezing Ciprofloxacin (Ciprofloxacin Hcl) 500 mg PO DAILY [facility] Last Admin: 12/12/17 07:52 Dose: 500 mg Cranberry (Cranberry) 500 mg PO DAILY [facility] Last Admin: 12/12/17 07:52 Dose: 500 mg Ergocalciferol (Vitamin D2) 50,000 units PO Q7D [facility] Last Admin: 12/11/17 08:30 Dose: 50,000 units Insulin Aspart (Novolog) 0 unit SUBCUT TIDMEALS [facility] PRN Reason: Protocol Last Admin: 12/12/17 07:53 Dose: 4 units Insulin Detemir (Levemir) 16 unit SUBCUT BEDTIME [facility] Last Admin: 12/11/17 19:36 Dose: 16 units Levothyroxine Sodium (Levothyroxine) 112 mcg PO MOTUTHFRSA@0700 [facility] Last Admin: 12/12/17 06:07 Dose: 112 mcg Levothyroxine Sodium (Levothyroxine) 125 mcg PO SUWE@0700 [facility] Last Admin: 12/11/17 06:09 Dose: 125 mcg Melatonin (Melatonin) 4.5 mg PO BEDTIME [facility] Last Admin: 12/11/17 19:38 Dose: 4.5 mg Mometasone Furoate/Formoterol Fumar (Dulera 200-5 Mcg) 2 puff IH BIDRT [facility] Last Admin: 12/12/17 06:07 Dose: 2 puff Multivitamins/Minerals (Thera M Plus) 1 tab PO DAILY [facility] Last Admin: 12/12/17 07:52 Dose: 1 tab Pregabalin (Lyrica) 25 mg PO BEDTIME [facility] Last Admin: 12/11/17 19:38 Dose: 25 mg Sodium Chloride (Saline Flush) 10 ml FLUSH ASDIRECTED PRN PRN Reason: Keep Vein Open Tramadol HCl (Ultram) 25 mg PO Q6H PRN PRN Reason: Pain (severe 7-10) Vancomycin HCl (Vancocin 125 Mg/2.5 Ml Soln) 250 mg PO QID [facility] Last Admin: 12/12/17 07:53 Dose: 250 mg Discontinued Medications Acetaminophen (Tylenol Extra Strength) 1,000 mg PO Q4HR PRN PRN Reason: Pain (moderate 4-6) Last Admin: 12/10/17 20:43 Dose: 1,000 mg Ciprofloxacin (Ciprofloxacin Hcl) 500 mg PO Q12H [facility] Last Admin: 12/11/17 08:27 Dose: 500 mg Lactated Ringer's (Ringers, Lactated) 1,000 mls @ 999 mls/hr IV NOW [facility] Stop: 12/10/17 15:03 Last Admin: 12/10/17 14:20 Dose: 999 mls/hr Lactated Ringer's (Ringers, Lactated) 1,000 mls @ 100 mls/hr IV ASDIRECTED [facility] Stop: 12/11/17 18:31 Last Admin: 12/11/17 08:31 Dose: 100 mls/hr Insulin Aspart (Novolog) 4 unit SUBCUT DAILY@1800 PRN PRN Reason: Blood Glucose Insulin Aspart (Novolog) 5 unit SUBCUT ONETIME ONE Stop: 12/11/17 16:58 Last Admin: 12/11/17 17:18 Dose: 5 units Non-Formulary Medication (Doxylamine Succinate [Unisom]) 25 mg PO BEDTIME PRN PRN Reason: Sleep Non-Formulary Medication (Multivit &Minerals/Ferrous Fum [Multivitamin Liquid]) 15 ml PO DAILY [facility] Pregabalin (Lyrica) 25 mg PO BEDTIME PRN PRN Reason: Pain - Exam General: Reports: Alert, Cooperative, No Acute Distress HEENT: Reports: Mucous Membr. Moist/[place] Neck: Reports: Supple, Trachea Midline, No Thyromegaly. Denies: Lymphadenopathy Lungs: Reports: Clear to Auscultation, Normal Respiratory Effort Cardiovascular: Reports: Regular Rate, Regular Rhythm, No Murmurs GI/Abdominal Exam: Normal Bowel Sounds, Soft, Non-Tender, No Distention Extremities: Non-Tender, No Pedal Edema, Normal Capillary Refill Skin: Reports: Warm, Dry, Intact *Q Meaningful Use (DIS) - VTE *Q VTE Criteria *Q: - Stroke *Q Stroke Criteria *Q: - AMI *Q AMI Criteria *Q:
[2017-12-12] MEDS ORDERED: Insulin Aspart 100 Units/ML 3 ML Pen SUBCUT ONE (11:08)
== END 2017-12-12 11:12 ==
LOC: VM.ED 11:41 → VM.MS 14:39
PROVIDERS: ADMIT Nurse Practitioner Family; ATTEND Family Medicine
DX: E86.0 Dehydration (principal); N39.0 Urinary tract infection, site not specified; N17.9 Acute kidney failure, unspecified; I50.32 Chronic diastolic (congestive) heart failure; E11.22 Type 2 diabetes mellitus with diabetic chronic kidney disease; N18.3 Chronic kidney disease, stage 3 (moderate); J44.9 Chronic obstructive pulmonary disease, unspecified; G89.29 Other chronic pain; E03.9 Hypothyroidism, unspecified; R41.89 Other symptoms and signs involving cognitive functions and awareness; M54.5 Low back pain; Z79.4 Long term (current) use of insulin; Z86.19 Personal history of other infectious and parasitic diseases; Z79.899 Other long term (current) drug therapy; Z88.8 Allergy status to other drugs, medicaments and biological substances; Z87.891 Personal history of nicotine dependence
CPT/HCPCS: 36415; 80048; 81001; 82962; 83735; 84443; 85025; 94760; 96360; 97161; 97165; 99284; A9270; J1815; J7120; 96361; 99220; G0378